=== PATIENT | male | born 1950 | race Caucasian/White ===

== ENCOUNTER → 2018-01-12 | Outpatient (CLI) | payer MEDICARE ==
[2018-01-12 10:10] LABS: Basophils % (A) 0 %; Eosinophils # (A) 0.1 k/uL (0-0.7); Eosinophils % (A) 1 %; HCT 43.7 % (39.0-53.0); HGB 14.7 gm/dL (13.0-17.5); Lymphocytes # (A) 1.1 k/uL (1.0-4.8); Lymphocytes % (A) 15 %; MCH 30.3 pg (25.0-35.0); MCHC 33.6 g/dL (31.0-37.0); MCV 90.2 fL (80.0-100.0); Mean Platelet Volume 6.8; Monocytes # (A) 0.5 k/uL (0-1.0); Monocytes % (A) 8 %; Neutrophils # (A) 5.3 k/uL (1.3-7.7); Neutrophils % (A) 74 %; Platelet Count 106 k/uL (150-450); RBC 4.85 m/uL (4.30-5.90); RDW 14.6 % (11.5-15.5); WBC 7.1 k/uL (3.8-10.6)
== END | disposition home or self-care (01) ==
LOC: LABWHC1 09:36
PROVIDERS: ATTEND Family Medicine
DX: Z01.818 Encounter for other preprocedural examination (principal)
CPT/HCPCS: 36415; 85025

== ENCOUNTER 2018-06-15 02:08 | Observation (INO) | payer MEDICARE ==
[2018-06-15] MEDS ORDERED: HYDROcodone/APAP 5-325MG 1 EACH TAB ONE (03:45)
[2018-06-15] MEDS ORDERED: SODIUM CHLORIDE 0.9% 1,000 ML BAG ONE (03:45)
[2018-06-15] MEDS ORDERED: SODIUM CHLORIDE 0.9% 1,000 ML IV ONE (04:39)
[2018-06-15 05:21] LABS: Creatine Kinase 49 U/L (55-170); Creatine Kinase MB 0.9 ng/mL (0.0-2.4); Troponin I <0.012 ng/mL (0.000-0.034)
[2018-06-15 05:23] LABS: ALT 24 U/L (21-72); AST 18 U/L (17-59); Albumin 3.5 g/dL (3.5-5.0); Alkaline Phosphatase 61 U/L (38-126); Anion Gap 4 mmol/L; Blood Urea Nitrogen 13 mg/dL (9-20); Calcium 8.6 mg/dL (8.4-10.2); Carbon Dioxide 27 mmol/L (22-30); Chloride 104 mmol/L (98-107); Glucose 121 mg/dL (74-99); Magnesium 1.9 mg/dL (1.6-2.3); Potassium 4.3 mmol/L (3.5-5.1); Sodium 135 mmol/L (137-145); Total Bilirubin 0.5 mg/dL (0.2-1.3); Total Protein 5.7 g/dL (6.3-8.2)
[2018-06-15 05:31] LABS: Basophils % (A) 0 %; Eosinophils # (A) 0.1 k/uL (0-0.7); Eosinophils % (A) 1 %; HCT 34.9 % (39.0-53.0); HGB 12.2 gm/dL (13.0-17.5); Lymphocytes # (A) 0.5 k/uL (1.0-4.8); Lymphocytes % (A) 5 %; MCHC 34.9 g/dL (31.0-37.0); MCV 88.7 fL (80.0-100.0); Mean Platelet Volume 7.3; Monocytes # (A) 0.5 k/uL (0-1.0); Monocytes % (A) 5 %; Neutrophils # (A) 8.5 k/uL (1.3-7.7); Neutrophils % (A) 89 %; Platelet Count 131 k/uL (150-450); RBC 3.93 m/uL (4.30-5.90); WBC 9.6 k/uL (3.8-10.6)
[2018-06-15] MEDS ORDERED: GABAPENTIN 300 MG CAP PO STA (06:17)
[2018-06-15 09:12] LABS: Glucose,Whole Blood 117 mg/dL (75-99)
--- NOTE | 2018-06-15 09:54 | XR ---
EXAM: XR Chest, 2 Views CLINICAL HISTORY: fall, chest pain TECHNIQUE: Frontal and lateral views of the chest. COMPARISON: No relevant prior studies available. FINDINGS: Lung volumes. Heart size appears normal allowing for technique. No pneumothorax, evidence for edema or other acute cardiopulmonary process. IMPRESSION: No acute cardiopulmonary findings.
--- NOTE | 2018-06-15 15:46 | P.HPIM ---
History of Present Illness This is a pleasant 68 years old male with past medical history of GERD, osteoarthritis, chronic low back pain, migraine, thrombocytopenia arthritis of multiple joints, restless leg syndrome, prostate cancer status post surgery, status post back surgery and hernia repair who presents because he syncopized twice for the first time while he was playing pool ball, the the patient thinks it's state on the floor for a minute. He hasn't been told he has jerking movements, no urine or bowel incontinence and did not bit his tongue. However patient complaining of from twitching in his upper extremity and restless leg for about one year. Patient states he woke up with no confusion at this point. He denies any chest pain or dyspnea or palpitation. No dizziness. He didn't report any prodromal symptoms. He has history of alcohol abuse however he hasn' t been drinking for the last 3 months Also complaining of from pain and swelling in his left knee after fall, he has history of left knee surgery but patient states is more swollen now, his movement in the left lower extremity is restricted mostly due to pain as per patient On admission patient was afebrile, vitals looks stable. Sodium 135, potassium 4.3. Creatinine 0.4. LFTs were unremarkable. WBC 9.6 a, hemoglobin 12.2. Platelets low at 131 Review of Systems CONSTITUTIONAL: No fever, no malaise, no fatigue. HEENT: No recent visual problems or hearing problems. Denied any sore throat. CARDIOVASCULAR: No orthopnea, PND, no palpitations, no syncope. PULMONARY: No shortness of breath, no cough, no hemoptysis. GASTROINTESTINAL: No diarrhea, no nausea, no vomiting, no abdominal pain. Normoactive bowel sounds. NEUROLOGICAL: No headaches, no weakness, no numbness. HEMATOLOGICAL: Denies any bleeding or petechiae. GENITOURINARY: Denies any burning micturition, frequency, or urgency. MUSCULOSKELETAL/RHEUMATOLOGICAL: Denies any joint pain, swelling, or any muscle pain. ENDOCRINE: Denies any polyuria or polydipsia. Past Medical History Past Medical History: Cancer, GERD/Reflux, Osteoarthritis (OA) Additional Past Medical History / Comment(s): Chronic low back pain, migraines when younger, arthritis multiple joints, recent L knee injury, RLS, prostate cancer with surgery, past R lower leg and rib fractures, past irregular bowels ( diarrhea/constipation) but no longer a problem. History of Any Multi-Drug Resistant Organisms: None Reported Past Surgical History: Back Surgery, Hernia Repair, Orthopedic Surgery, Prostate Surgery Additional Past Surgical History / Comment(s): Recent R wrist surgery, left knee open surgery for meniscus years ago, R inguinal hernia repair, vasectomy with reversal, bilateral hands and thumb surgery d/t injuries, back surgeries (6 ) with fusions, colonoscopy. Past Anesthesia/Blood Transfusion Reactions: Postoperative Nausea & Vomiting ( PONV) Smoking Status: Former smoker - Past Family History Father Family Medical History: No Reported History Additional Family Medical History / Comment(s): Father is healthy and is almost 90yrs old. Mother Family Medical History: No Reported History Additional Family Medical History / Comment(s): Mother is healthy and is 89yrs old. Medications and Allergies Home Medications Medication Instructions Recorded Confirmed Type Acyclovir [Zovirax] 800 mg PO HS 09/27/17 06/15/18 History Gabapentin 600 mg PO TID 09/27/17 06/15/18 History Pramipexole [Mirapex] 1 mg PO BID 09/27/17 06/15/18 History HYDROcodone/APAP 7.5-325MG [[place] 1 tab PO HS 06/15/18 06/15/18 History 7.5-325] Omeprazole 20 mg PO BID 06/15/18 06/15/18 History Allergies Allergy/AdvReac Type Severity Reaction Status Date / Time bee venom protein (honey bee) Allergy Swelling Verified 06/15/18 07:41 Physical Exam Vitals: Vital Signs Temp Pulse Pulse Resp BP BP Pulse Ox 06/15/18 12:40 98.3 F 69 16 149/76 99 06/15/18 12:37 97.9 F 67 18 163/74 97 06/15/18 08:59 74 18 143/72 97 06/15/18 05:18 98.1 F 76 16 137/73 95 Intake and Output 06/15/18 06/15/18 06/15/18 06:59 14:59 22:59 Other: Voiding Method Toilet Weight 77.111 kg 74.5 kg GENERAL: The patient is alert and oriented x3, not in any acute distress. Well developed, well nourished. HEENT: Pupils are round and equally reacting to light. EOMI. No scleral icterus. No conjunctival pallor. Normocephalic, atraumatic. No pharyngeal erythema. No thyromegaly. CARDIOVASCULAR: S1 and S2 present. No murmurs, rubs, or gallops. PULMONARY: Chest is clear to auscultation, no wheezing or crackles. ABDOMEN: Soft, nontender, nondistended, normoactive bowel sounds. No palpable organomegaly. MUSCULOSKELETAL: No joint swelling or deformity. EXTREMITIES: No cyanosis, clubbing, or pedal edema. NEUROLOGICAL: Gross neurological examination did not reveal any focal deficits. SKIN: No rashes. Results CBC & Chem 7: 06/15/18 02:35 06/15/18 02:35 Labs: Abnormal Lab Results - Last 24 Hours (Table) 06/15/18 06/15/18 06/15/18 Range/Units 02:16 02:35 02:35 RBC 3.93 L (4.30-5.90) m/uL Hgb 12.2 L (13.0-17.5) gm/dL Hct 34.9 L (39.0-53.0) % Plt Count 131 L (150-450) k/uL Neutrophils # 8.5 H (1.3-7.7) k/uL Lymphocytes # 0.5 L (1.0-4.8) k/uL Sodium 135 L (137-145) mmol/L Glucose 121 H (74-99) mg/dL POC Glucose (mg/dL) 117 H (75-99) mg/dL Total Creatine Kinase (55-170) U/L Total Protein 5.7 L (6.3-8.2) g/dL 06/15/18 Range/Units 02:35 RBC (4.30-5.90) m/uL Hgb (13.0-17.5) gm/dL Hct (39.0-53.0) % Plt Count (150-450) k/uL Neutrophils # (1.3-7.7) k/uL Lymphocytes # (1.0-4.8) k/uL Sodium (137-145) mmol/L Glucose (74-99) mg/dL POC Glucose (mg/dL) (75-99) mg/dL Total Creatine Kinase 49 L (55-170) U/L Total Protein (6.3-8.2) g/dL Thrombosis Risk Factor Assmnt - Choose All That Apply Any of the Below Risk Factors Present?: Yes Other Risk Factors: Yes Each Risk Factor Represents 2 Points: Age 61-74 years, Malignancy Other congenital or acquired thrombophilia - If yes, enter type in comment: No Thrombosis Risk Factor Assessment Total Risk Factor Score: 4 Thrombosis Risk Factor Assessment Level: Moderate Risk Assessment and Plan Assessment: Syncope Left knee swelling after a fall GERD osteoarthritis chronic low back pain migraine chronic thrombocytopenia arthritis of multiple joints restless leg syndrome prostate cancer status post surgery status post back surgery and hernia repair Plan: Patient presents with syncope and fall, he has left knee swelling, continue with the same and treatment. Continue with symptomatically treatment. We'll do echocardiogram and ask for cardiology consult and neurology consult. X-ray of the left knee: Pending, orthopedic consult: Pending. GI and DVT prophylaxis. Pain management. Further recommendation based on the course of the patient DVT prophylaxis: SCDs, total further workup of the knee and others GI prophylaxis Pepcid PT/OT: Pending
--- NOTE | 2018-06-15 16:23 | XR ---
EXAMINATION TYPE: XR knee 4V LT DATE OF EXAM: 06/15/2018 CLINICAL HISTORY: Left anterior knee pain with swelling and limited range of motion after fall injury yesterday. TECHNIQUE: Three views of the left knee are obtained. A fourth sunrise view was acquired. COMPARISON: None. FINDINGS: There is no acute fracture/dislocation evident in the left knee. There is tricompartment j oint space loss and spurring most prominent medial tibiofemoral compartment where there is moderate t o advanced in appearance. Meniscal calcification is noted suggesting underlying chondrocalcinosis. T here is slight lateral tilting of patella on sunrise view. Suspect small to moderate-sized suprapatel lar joint effusion on lateral view. Some faint densities or calcifications posterior distal femoral a nd superior suprapatellar levels are noted. IMPRESSION: There is no acute fracture or dislocation in the left knee.
[2018-06-15] MEDS: traMADol 50 MG TAB PO PRN ×2 (16:29→23:04)
--- NOTE | 2018-06-15 16:59 | P.CNOR ---
History of Present Illness - [facility] Consult date: 06/15/18 Consult reason: joint pain History of present illness: Patient is a 68 year old male who presented to [facility] today after a syncopal episode. Patient states that he was at a local bar in the area playing pool, he fell off the stool. He does not remember what led up to it, he remembered waking up on the ground. He noticed worsening pain and swelling of his left knee. He was brought to [facility] for further evaluation. Patient was admitted under internal medicine with multiple consults placed for the syncopal episode. Our orthopedic team was counseled with regards to left knee pain and swelling. Patient has a history of a previous left knee surgery done back in the late 70s. He's had on-and-off discomfort over the years with regards to the knee. He has a history of a right hand procedure done by [facility] last year. He has history of multiple back surgeries. He denies any recent orthopedic surgery. Review of Systems Constitutional: Reports as per HPI Past Medical History Past Medical History: Cancer, GERD/Reflux, Osteoarthritis (OA) Additional Past Medical History / Comment(s): Chronic low back pain, migraines when younger, arthritis multiple joints, recent L knee injury, RLS, prostate cancer with surgery, past R lower leg and rib fractures, past irregular bowels ( diarrhea/constipation) but no longer a problem. History of Any Multi-Drug Resistant Organisms: None Reported Past Surgical History: Back Surgery, Hernia Repair, Orthopedic Surgery, Prostate Surgery Additional Past Surgical History / Comment(s): Recent R wrist surgery, left knee open surgery for meniscus years ago, R inguinal hernia repair, vasectomy with reversal, bilateral hands and thumb surgery d/t injuries, back surgeries (6 ) with fusions, colonoscopy. Past Anesthesia/Blood Transfusion Reactions: Postoperative Nausea & Vomiting ( PONV) Smoking Status: Former smoker - Past Family History Father Family Medical History: No Reported History Additional Family Medical History / Comment(s): Father is healthy and is almost 90yrs old. Mother Family Medical History: No Reported History Additional Family Medical History / Comment(s): Mother is healthy and is 89yrs old. Medications and Allergies Home Medications Medication Instructions Recorded Confirmed Type Acyclovir [Zovirax] 800 mg PO HS 09/27/17 06/15/18 History Gabapentin 600 mg PO TID 09/27/17 06/15/18 History Pramipexole [Mirapex] 1 mg PO BID 09/27/17 06/15/18 History HYDROcodone/APAP 7.5-325MG [[place] 1 tab PO HS 06/15/18 06/15/18 History 7.5-325] Omeprazole 20 mg PO BID 06/15/18 06/15/18 History Allergies Allergy/AdvReac Type Severity Reaction Status Date / Time bee venom protein (honey bee) Allergy Swelling Verified 06/15/18 07:41 Physical Examination Left lower extremity: Obvious effusion present over knee, no erythema or open lesions Range of motion is -15 to 100 degrees Minimal medial and lateral joint line tenderness with palpation Calf is soft, no tenderness with palpation Plantar flexion, dorsiflexion, EHL, FHL are intact Sensory exam to lite touch intact, cap refill is less then 2 seconds Log roll maneuver reproduces no pain Results - Labs Labs: Abnormal Lab Results - Last 24 Hours (Table) 06/15/18 06/15/18 06/15/18 Range/Units 02:16 02:35 02:35 RBC 3.93 L (4.30-5.90) m/uL Hgb 12.2 L (13.0-17.5) gm/dL Hct 34.9 L (39.0-53.0) % Plt Count 131 L (150-450) k/uL Neutrophils # 8.5 H (1.3-7.7) k/uL Lymphocytes # 0.5 L (1.0-4.8) k/uL Sodium 135 L (137-145) mmol/L Glucose 121 H (74-99) mg/dL POC Glucose (mg/dL) 117 H (75-99) mg/dL Total Creatine Kinase (55-170) U/L Total Protein 5.7 L (6.3-8.2) g/dL 06/15/18 Range/Units 02:35 RBC (4.30-5.90) m/uL Hgb (13.0-17.5) gm/dL Hct (39.0-53.0) % Plt Count (150-450) k/uL Neutrophils # (1.3-7.7) k/uL Lymphocytes # (1.0-4.8) k/uL Sodium (137-145) mmol/L Glucose (74-99) mg/dL POC Glucose (mg/dL) (75-99) mg/dL Total Creatine Kinase 49 L (55-170) U/L Total Protein (6.3-8.2) g/dL H & H 06/15/18 Range/Units 02:35 Hgb 12.2 L (13.0-17.5) gm/dL Hct 34.9 L (39.0-53.0) % Result Diagrams: 06/15/18 02:35 06/15/18 02:35 - Diagnostic results Knee x-ray: report reviewed, image reviewed Assessment and Plan Plan: Imaging: Multiple views of left knee obtained, no fractures or dislocations. Severe tricompartmental osteoarthritis noteded Assessment: 1. Left knee effusion 2. Left knee tricompartmental osteoarthritis 3. Syncopal episode 4. Other medical cormobidities Plan: I was able to discuss case including physical exam findings with my attending Dr. Salas. No acute surgical intervention needed at this time. I discussed joint aspiration with intraarticular steroid injection to help with symptoms, he would like to proceed, plan to do morning on 06/16/2018 Ice and elevation of left knee Pain control Weightbear as tolerated Other medical speciality recommendations Further recommendations to follow Time with Patient: Less than 30
--- NOTE | 2018-06-15 18:42 | P.CNNES ---
History of Present Illness Consult date: 06/15/18 Reason for Consult: Patient with syncope and muscle twichings. History of Present Illness: This patient is a 68-year-old right-handed white male who states he was in his usual state of health until yesterday evening. He was playing pool with some friends and apparently decided to go to the bar and was sitting at the bar stool when he suddenly felt very warm and diaphoretic. He then apparently passed out and was on the ground. He was noted to have some twitching while he was on the floor but came around very quickly. He had no urinary or bladder incontinence. He did not bite his tongue. He came around quickly and the state auditor who was near him helped him to sit up again. Apparently had 2 similar episodes back to back and at this time the state auditor decided to call EMS. He has a history of restless leg syndrome but has also been noticing for the past year or jerking motions of his arms and legs spontaneously. He has no previous history of seizures or head injury in the past. He has a history of alcohol use in the past but has not been drinking for the past 3 months. He states he is also been very careful and staying hydrated in the warm weather. Patient was brought into the emergency room at [facility] and was seen in the ER by Dr. Henderson. He apparently didn't injure his left knee from falling and had some swelling of the left knee. He is being evaluated by orthopedic surgery for possible left knee effusion. Currently he is to have a procedure done to aspirate the left knee tomorrow morning. Patient does also have a history of 6 back surgeries over the last several years. He has been walking in the knee pain has been only recently after the fall. Once again the patient has no previous history of syncope and/or seizures in the past. He has been doing much better since admission to the hospital. We have recommended the patient undergo routine EEG tomorrow for further evaluation. It was also explained the [place] driving law which states he should not drive for period of 6 months following any syncopal episode and/or seizure. It is still unclear whether he was diaphoretic and possiblyhad a vasovagal syncope as he was pale just prior to this event. This was noted by the state auditor who had seen him before he had passed out. He may benefit from cardiology consultation as well. Patient is now admitted and neurology has been consulted for further evaluation and recommendations. Review of Systems Constitutional: Denies chills, Denies fever Eyes: denies blurred vision, denies pain Ears, nose, mouth and throat: Denies headache, Denies sore throat Cardiovascular: Denies chest pain, Denies shortness of breath Respiratory: Denies cough Gastrointestinal: Denies abdominal pain, Denies diarrhea, Denies nausea, Denies vomiting Musculoskeletal: Denies myalgias Integumentary: Denies pruritus, Denies rash Neurological: Reports syncope, Denies numbness, Denies weakness Psychiatric: Denies anxiety, Denies depression Endocrine: Denies fatigue, Denies weight change Past Medical History Past Medical History: Cancer, GERD/Reflux, Osteoarthritis (OA) Additional Past Medical History / Comment(s): Chronic low back pain, migraines when younger, arthritis multiple joints, recent L knee injury, RLS, prostate cancer with surgery, past R lower leg and rib fractures, past irregular bowels ( diarrhea/constipation) but no longer a problem. History of Any Multi-Drug Resistant Organisms: None Reported Past Surgical History: Back Surgery, Hernia Repair, Orthopedic Surgery, Prostate Surgery Additional Past Surgical History / Comment(s): Recent R wrist surgery, left knee open surgery for meniscus years ago, R inguinal hernia repair, vasectomy with reversal, bilateral hands and thumb surgery d/t injuries, back surgeries (6 ) with fusions, colonoscopy. Past Anesthesia/Blood Transfusion Reactions: Postoperative Nausea & Vomiting ( PONV) Smoking Status: Former smoker - Past Family History Father Family Medical History: No Reported History Additional Family Medical History / Comment(s): Father is healthy and is almost 90yrs old. Mother Family Medical History: No Reported History Additional Family Medical History / Comment(s): Mother is healthy and is 89yrs old. Medications and Allergies Home Medications Medication Instructions Recorded Confirmed Type Acyclovir [Zovirax] 800 mg PO HS 09/27/17 06/15/18 History Gabapentin 600 mg PO TID 09/27/17 06/15/18 History Pramipexole [Mirapex] 1 mg PO BID 09/27/17 06/15/18 History HYDROcodone/APAP 7.5-325MG [[place] 1 tab PO HS 06/15/18 06/15/18 History 7.5-325] Omeprazole 20 mg PO BID 06/15/18 06/15/18 History Allergies Allergy/AdvReac Type Severity Reaction Status Date / Time bee venom protein (honey bee) Allergy Swelling Verified 06/15/18 07:41 Physical Examination - Vital Signs Vital Signs: Vital Signs Temp Pulse Pulse Resp BP BP BP 06/15/18 15:50 99.3 F 65 18 159/85 06/15/18 12:40 98.3 F 69 16 149/76 06/15/18 12:37 97.9 F 67 18 163/74 06/15/18 08:59 74 18 143/72 06/15/18 05:18 98.1 F 76 16 137/73 BP BP Pulse Ox 06/15/18 15:50 175/87 150/69 100 06/15/18 12:40 99 06/15/18 12:37 97 06/15/18 08:59 97 06/15/18 05:18 95 Intake and Output 06/15/18 06/15/18 06/15/18 06:59 14:59 22:59 Other: Voiding Method Toilet Weight 77.111 kg 74.5 kg - Constitutional General appearance: average body habitus, cooperative - EENT EENT: PERRL, mucous membranes moist - Respiratory Respiratory: lungs clear, normal breath sounds - Cardiovascular Cardiovascular: regular rate, normal S1, normal S2 Extremities: no peripheral edema bilaterally - Gastrointestinal Gastrointestinal: normoactive bowel sounds - Integumentary Integumentary: normal - Neurologic Cranial nerve examination: PERRL, EOMI, VFF, V1/V2/V3 grossly intact, face symmetric, intact gag reflex, intact corneal reflex, normal palatal elevation Speech examination: intact Sensorimotor examination: intact Motor examination - right side: 4/5: biceps, triceps, wrist flexion, wrist extension, bulb sorter, hip flexors, knee extensors, dorsiflexion, toe extension (EHL) , plantarflexion Motor examination - left side: 4/5: biceps, triceps, wrist flexion, wrist extension, bulb sorter, hip flexors, knee extensors, dorsiflexion, toe extension (EHL) , plantarflexion Detailed sensory examination: intact Reflex and gait examination: intact Reflexes: 1+: ankle, bicep, knee, tricep - Musculoskeletal Musculoskeletal: fluid collection (Left knee effusion.), pain in joint - Psychiatric Psychiatric: mood/affect appropriate, cooperative Results - Laboratory Findings CBC and BMP: 06/15/18 02:35 06/15/18 02:35 Abnormal Lab Findings: Abnormal Labs 06/15/18 06/15/18 06/15/18 02:16 02:35 02:35 RBC 3.93 L Hgb 12.2 L Hct 34.9 L Plt Count 131 L Neutrophils # 8.5 H Lymphocytes # 0.5 L Sodium 135 L Glucose 121 H POC Glucose (mg/dL) 117 H Total Creatine Kinase Total Protein 5.7 L 06/15/18 02:35 RBC Hgb Hct Plt Count Neutrophils # Lymphocytes # Sodium Glucose POC Glucose (mg/dL) Total Creatine Kinase 49 L Total Protein Assessment and Plan (1) Vasovagal syncope Current Visit: Yes Status: Acute Code(s): R55 - SYNCOPE AND COLLAPSE SNOMED Code(s): 013651358 (2) Effusion, left knee Current Visit: Yes Status: Acute Code(s): M25.462 - EFFUSION, LEFT KNEE SNOMED Code(s): 852789820 (3) Chronic low back pain Current Visit: Yes Status: Acute Code(s): M54.5 - LOW BACK PAIN; G89.29 - OTHER CHRONIC PAIN SNOMED Code(s): 793602026 (4) Restless leg syndrome Current Visit: Yes Status: Acute Code(s): G25.81 - RESTLESS LEGS SYNDROME SNOMED Code(s): 77807921 Plan: This patient is a 68-year-old male who had an acute syncopal episode yesterday while he was playing pool. Apparently he was sitting at the bar stool and apparently became suddenly pale and clammy. He then collapsed to the floor. The state auditor had seen this event. He did not have any seizure-like activity on the floor and did not have any bowel or bladder incontinence. He did not bite his tongue. He came around fairly quickly and did not appear to be confused. Clinical history suggesting vasovagal syncope. He was brought into the emergency room and subsequent admitted hospital. He has no previous history of seizures and/or head injury in the past. We have recommended the patient undergo routine EEG to rule out any possibility of seizure disorder. He was evaluated by orthopedic surgery for left knee effusion. He is to undergo aspiration of this fluid tomorrow by orthopedic surgery. Patient otherwise seems to be doing very well. We will review his EEG and give further recommendations. He was once again reminded of the [place] driving law states he should not drive.. To 6 months following any syncopal episode and/or seizure. We will continue close neurological follow-up for the patient during this admission. His overall prognosis at this time remains guarded. Time with Patient: Greater than 30
[2018-06-15] MEDS: HYDROcodone/APAP 7.5-325MG 1 EACH TAB PO SCH (21:50)
[2018-06-16] MEDS: traMADol 50 MG TAB PO PRN (03:34)
[2018-06-16 06:53] LABS: Basophils % (A) 0 %; Eosinophils # (A) 0.1 k/uL (0-0.7); Eosinophils % (A) 1 %; HCT 36.3 % (39.0-53.0); HGB 12.2 gm/dL (13.0-17.5); Lymphocytes # (A) 0.8 k/uL (1.0-4.8); Lymphocytes % (A) 12 %; MCH 29.4 pg (25.0-35.0); MCHC 33.6 g/dL (31.0-37.0); MCV 87.6 fL (80.0-100.0); Monocytes # (A) 0.4 k/uL (0-1.0); Monocytes % (A) 5 %; Neutrophils # (A) 5.7 k/uL (1.3-7.7); Neutrophils % (A) 81 %; Platelet Count 125 k/uL (150-450); RBC 4.15 m/uL (4.30-5.90); RDW 13.7 % (11.5-15.5)
[2018-06-16 07:01] LABS: Anion Gap 7 mmol/L; Blood Urea Nitrogen 9 mg/dL (9-20); Calcium 8.5 mg/dL (8.4-10.2); Carbon Dioxide 27 mmol/L (22-30); Chloride 105 mmol/L (98-107); Glucose 109 mg/dL (74-99); Prothrombin Time 10.1 sec (9.0-12.0); Sodium 139 mmol/L (137-145)
--- NOTE | 2018-06-16 10:34 | CONS ---
CONSULTATION Mr. Whitaker is a 68-year-old male patient who was playing pool and then he walked to the bar, sat down on the barstool and after a minute or 2, he became dizzy and he passed out and fell to the floor. In the process, he injured his knee. He had a meniscus injury in the past and had has had surgery and now has knee swelling with synovial fluid, which is being managed by Orthopedics. He denied any palpitations or chest pain just prior to that. He denied any chest discomfort. He was just dizzy and passed out briefly, had some muscle twitching. He fell and apparently he was shah. When he opened his eyes, he was alert and oriented and wondered why he was on the floor, but he knew exactly where he was. There was no postictal phase. He was warm. He was sweaty. He was hot. This is the first time he has had such an episode. He has not actually had a syncopal spell before. PAST HISTORY: No history of diabetes, hypertension, dyslipidemia and no family history of any premature coronary artery disease. Allergies to BEE VENOM PROTEIN. Past medical history also includes multiple back surgeries and he is unable to exercise on the treadmill. His medications include Mirapex. omeprazole, gabapentin, and acyclovir. He has had a low platelet count for an unclear reason. REVIEW OF SYSTEMS: No fever, chills, or rigors. No cough or expectoration. No nausea, vomiting, or diarrhea. No hematuria or dysuria. No strokes or seizures or skin lesions. No musculoskeletal complaints. He was not dehydrated. He had his meals. He had 2 meals that day. He had been drinking enough water nor had he been drinking the night before. A first 12 lead ECG shows sinus mechanism with normal cardiac intervals. A second ECG shows sinus mechanism with normal NM, narrow QRS and very subtle ST-segment abnormality in the lateral precordial leads. His labs are reviewed. Hemoglobin is 12.2. His platelet count is already low. Electrolytes are normal. Three sets of cardiac enzymes are normal. No arrhythmias noted. IMPRESSION: First episode of syncope that is consistent with neurocardiogenic syncope. However, he was sitting at that time for a few minutes. He was playing pool, had been standing any wall to the [employer] and was sitting moments before he actually passed out. In the process, he injured his right knee. This is his first episode. There are very subtle ST-segment abnormalities in the followup ECG, but his cardiac enzymes are normal. SUGGEST: 1. A 2D echo and Doppler study. 2. Tilt table test today and further workup as an outpatient. I did discuss that if he had a repeat spell than implantation of a loop monitor to look for a cardiac contributory cause of vasovagal syncope should be cardioverted to look for cardiac inhibitory pattern may be considered given the scenario when it happened. [id number] / IJN: [id number] /
--- NOTE | 2018-06-16 10:58 | P.PN ---
Subjective Progress Note Date: 06/16/18 Principal diagnosis: Left knee effusion, left knee osteoarthritis Patient seen today resting in his hospital bed. His knee continues to bother him. He would like to proceed with a aspiration and cortisone injection of the knee. Objective - Vital Signs Vital signs: Vital Signs Temp 98.6 F 06/16/18 07:03 Pulse 61 06/16/18 07:03 Resp 16 06/16/18 07:03 BP 139/70 06/16/18 07:03 Pulse Ox 97 06/16/18 07:03 Intake & Output 06/15/18 06/16/18 06/16/18 18:59 06:59 18:59 Intake Total 200 2400 Balance 200 2400 Weight 74.5 kg Intake: Intake, IV Titration 1200 Amount Sodium Chloride 0.9% 1, 1200 000 ml @ 100 mls/hr IV . Q10H ONE Rx#:[id number] Oral 200 1200 Other: Voiding Method Toilet Toilet Toilet # Voids 700 - Exam Left lower extremity: Obvious effusion present over the knee, very difficult time lifting the leg off the bed. After aspiration, notable soft tissue swelling proximal to patella, patient still has a very difficult time extending and lifting the leg off the bed. Concern for possible quad injury. - Labs CBC & Chem 7: 06/16/18 06:29 06/16/18 06:29 Labs: Abnormal Lab Results - Last 24 Hours (Table) 06/16/18 06/16/18 Range/Units 06:29 06:29 RBC 4.15 L (4.30-5.90) m/uL Hgb 12.2 L (13.0-17.5) gm/dL Hct 36.3 L (39.0-53.0) % Plt Count 125 L (150-450) k/uL Lymphocytes # 0.8 L (1.0-4.8) k/uL Glucose 109 H (74-99) mg/dL Assessment and Plan Plan: Assessment: 1. Left knee effusion 2. Left knee osteoarthritis 3. Possible of quadriceps tendon injury 4. Syncopal episode Plan: Patient would like to proceed with left knee aspiration with cortisone injection , please see procedure note for further detail Patient tolerated the procedure well, recommend weight-bear as tolerated We'll discuss with Dr. Salas possible further imaging studies to evaluate left quadriceps tendon Other biomedical equipment technician recommendations Further recommendations to follow Time with Patient: Less than 30
--- NOTE | 2018-06-16 11:00 | P.PCN ---
Date of Procedure: 06/16/18 Preoperative Diagnosis: Left knee effusion and pain Postoperative Diagnosis: Same Procedure(s) Performed: Left knee aspiration with intra-articular cortisone injection Implants: None Anesthesia: regional Surgeon: Kain Richard Estimated Blood Loss (ml): 0 Pathology: none sent Disposition: no change Indications for Procedure: Left knee effusion and pain Description of Procedure: I discussed the risk and benefits of the procedure the patient, he is in a grandson would like to proceed. Patient was placed in the supine position, the knee was prepped with 1 ChloraPrep swab and one alcohol swabs. 3 mL of 1% plain lidocaine was then used with a 20-gauge needle to anesthetize the region, I then aspirated about 62 mL of normal-appearing serosanguineous fluid. After proper aspiration, I then switched syringes and placed 2 mL 1% plain lidocaine and 40 mg of Depo- Medrol intra-articular. Patient tolerated the procedure well, bandage was placed
[2018-06-16] MEDS ORDERED: SODIUM CHLORIDE 0.9% 500 ML IV ONE (11:08)
--- NOTE | 2018-06-16 11:20 | ECHOF ---
Referral Reason:Rule out heart disease MEASUREMENTS -------- HEIGHT: 180.3 cm WEIGHT: 74.4 kg BP: 154/76 RVIDd: 3.6 cm (< 3.3) IVSd: 1.2 cm (0.6 - 1.1) LVIDd: 4.9 cm (3.9 - 5.3) LVPWd: 1.3 cm (0.6 - 1.1) IVSs: 1.7 cm LVIDs: 3.5 cm LVPWs: 1.7 cm LA Diam: 4.3 cm (2.7 - 3.8) Ao Diam: 3.2 cm (2.0 - 3.7) LAESV Index (A-L): 29.88 ml/m Ao Diam: 3.2 cm (2.0 - 3.7) AV Cusp: 2.2 cm (1.5 - 2.6) LA Diam: 4.3 cm (2.7 - 3.8) EPSS: 0.3 cm MV E Luis: 0.73 m/s MV DecT: 293 ms MV A Luis: 0.91 m/s MV E/A Ratio: 0.80 RAP: 5.00 mmHg RVSP: 21.21 mmHg MV EF SLOPE: 106.86 mm/s (70 - 150) MV EXCURSION: 2.16 cm (> 18.000) FINDINGS -------- Sinus rhythm. This was a technically good study. The left ventricular size is normal. There is mild concentric left ventricular hypertrophy. Overa ll left ventricular systolic function is normal with, an EF between 55 - 60 %. The right ventricle is mildly enlarged. LA is midly dilated 29-33ml/m2. RA appears enlarged. Aortic valve is trileaflet and is mildly thickened. There is no evidence of aortic regurgitation. There is no evidence of aortic stenosis. The mitral valve leaflets are mildly thickened. There is trace to mild mitral regurgitation. Trace tricuspid regurgitation present. Right ventricular systolic pressure is normal at < 35 mmHg. There is no evidence of pulmonary hypertension. Trace/mild (physiologic) pulmonic regurgitation. The aortic root size is normal. Normal inferior vena cava with normal inspiratory collapse consistent with estimated right atrial pre ssure of 5 mmHg. There is no pericardial effusion. CONCLUSIONS -------- 1. Sinus rhythm. 2. This was a technically good study. 3. The left ventricular size is normal. 4. There is mild concentric left ventricular hypertrophy. 5. Overall left ventricular systolic function is normal with, an EF between 55 - 60 %. 6. The right ventricle is mildly enlarged. 7. LA is midly dilated 29-33ml/m2. 8. RA appears enlarged. 9. Aortic valve is trileaflet and is mildly thickened. 10. The mitral valve leaflets are mildly thickened. 11. There is trace to mild mitral regurgitation. 12. Trace tricuspid regurgitation present. 13. Right ventricular systolic pressure is normal at < 35 mmHg. 14. There is no evidence of pulmonary hypertension. 15. Trace/mild (physiologic) pulmonic regurgitation. 16. The aortic root size is normal. 17. There is no pericardial effusion. FINISHING MANAGER: Henri Montero RDCS
[2018-06-16] MEDS ORDERED: HYDROcodone/APAP 7.5-325MG 1 EACH TAB PO PRN (14:00)
[2018-06-16] MEDS: GABAPENTIN 300 MG CAP PO SCH ×2 (17:03→19:38)
--- NOTE | 2018-06-16 18:36 | P.PCN ---
Preoperative Diagnosis: Tilt table test procedure Twelve-lead ECG Patient is to shows normal sinus rhythm and normal cardiac intervals normal ST segments no delta waves waves Indication patient has a history of syncope associated with trauma, consistent with neurocardiogenic syncope. no bradycardia on telemetry so far Tilt table test patient underwent tilt table test per protocol. baseline blood pressure 144/77 mmhg baseline heart rate 50 beats a minute patient was tilted upright at an angle of 70 per protocol he felt warm and clammy during the procedure he felt flushed at times there was no change in heart rate or blood pressure Impression Normal heart rate and blood pressure response to upright tilting Ghada If he has recurrent episodes of syncope then implantation of loop monitor may be considered to look for cardioinhibitory forms of neurocardiogenic syncope given the situation and the scenario of this episode of syncope
--- NOTE | 2018-06-16 19:08 | P.PN ---
Subjective Progress Note Date: 06/16/18 This patient is a 68-year-old lady white male who was seen yesterday in neurology consultation for possibility of vasovagal syncope versus seizure disorder. Patient was at a facility and was playing pool and decided to take a break and was sitting at the bar stool. He apparently passed out and was witnessed by the reserves clerk was clear. He was brought into the emergency room yesterday for further evaluation. He underwent an initial computed tomography scan of the brain which was negative. His neurological examination yesterday was nonfocal. He did have symptoms suggesting increase sweating and diaphoresis just prior to this event. He did not have any seizure-like events when he had passed out. He is being evaluated by cardiology for neurocardiogenic syncope. He is scheduled to have a tilt table test later today. We have ordered EEG as well for further evaluation to rule out seizure disorder. Patient was seen by cardiology today and underwent a tilt table test. Preliminary report indicates normal tilt table testing with a normal heart rate and blood pressure response to upright tilting. We also were able to review this patient's EEG which was completed today. His EEG is normal for his age with no evidence of any epileptiform discharges. The patient was seen by orthopedic surgery today and aspiration of his left knee was completed. Apparently there is concern for some ligamentous tear in the left knee and he is to have an MRI of the left knee done tonight. Neurological exam at this time is nonfocal. Patient is being considered for possible discharge home [place]. We reviewed the results of his EEG and other testing with him today in detail. We will continue close neurological follow-up for him during this admission. Objective - Vital Signs Vital signs: Vital Signs Temp 98.6 F 06/16/18 07:03 Pulse 61 06/16/18 07:03 Resp 16 06/16/18 07:03 BP 139/70 06/16/18 07:03 Pulse Ox 97 06/16/18 07:03 Intake & Output 06/15/18 06/16/18 06/16/18 18:59 06:59 18:59 Intake Total 200 2400 286 Balance 200 2400 286 Weight 74.5 kg Intake: IV 50 Intake, IV Titration 1200 Amount Sodium Chloride 0.9% 1, 1200 000 ml @ 100 mls/hr IV . Q10H ONE Rx#:[id number] Oral 200 1200 236 Other: Voiding Method Toilet Toilet Toilet # Voids 700 3 - Exam Physical examination: PHYSICAL EXAMINATION: Patient is resting comfortably in bed. VITAL SIGNS: Blood pressure is [139/70]. Heart rate is [61]. Respiration is [16] . Temperature is [98.0]. HEENT: Head is atraumatic, neck is supple, there were no carotid bruits. CHEST: Lungs are clear to auscultation and percussion. CARDIAC: S1, S2 normal rate and rhythm. There is no murmur. ABDOMEN: Soft and nontender. Bowel sounds are present. EXTREMITIES: There is no pedal edema. Peripheral pulses are present. Neurological examination: Patient has a nonfocal neurological examination today. He has had no further syncopal episodes. - Labs CBC & Chem 7: 06/16/18 06:29 06/16/18 06:29 Labs: Abnormal Lab Results - Last 24 Hours (Table) 06/16/18 06/16/18 Range/Units 06:29 06:29 RBC 4.15 L (4.30-5.90) m/uL Hgb 12.2 L (13.0-17.5) gm/dL Hct 36.3 L (39.0-53.0) % Plt Count 125 L (150-450) k/uL Lymphocytes # 0.8 L (1.0-4.8) k/uL Glucose 109 H (74-99) mg/dL Assessment and Plan (1) Vasovagal syncope Current Visit: Yes Status: Acute Code(s): R55 - SYNCOPE AND COLLAPSE SNOMED Code(s): 158599508 (2) Effusion, left knee Current Visit: Yes Status: Acute Code(s): M25.462 - EFFUSION, LEFT KNEE SNOMED Code(s): 001460575 (3) Chronic low back pain Current Visit: Yes Status: Acute Code(s): M54.5 - LOW BACK PAIN; G89.29 - OTHER CHRONIC PAIN SNOMED Code(s): 672779621 (4) Restless leg syndrome Current Visit: Yes Status: Acute Code(s): G25.81 - RESTLESS LEGS SYNDROME SNOMED Code(s): 44512049 Plan: This patient is a pleasant 68-year-old male who is being evaluated for recent syncopal episode and collapse. Patient was admitted to hospital and neurology was consulted for further evaluation to rule out seizure disorder in this patient. Patient underwent routine EEG today which was reviewed and is normal for his age. He was also seen by cardiology today and underwent a tilt table test which also came back normal. Patient may require loop monitor to be placed to rule out other forms of neurocardiogenic syncope. He is to follow-up with cardiology. His neurological examination today is nonfocal. Patient was updated on the results of his EEG today and should follow-up in the outpatient neurology clinic in 3-4 weeks. So overall prognosis at this time remains fair.
[2018-06-16] MEDS: HYDROcodone/APAP 7.5-325MG 1 EACH TAB PO SCH (19:30)
[2018-06-16] MEDS: PRAMIPEXOLE 1 MG TAB PO SCH (19:38)
[2018-06-16] MEDS: PANTOPRAZOLE 40 MG TABLET PO SCH (19:38)
--- NOTE | 2018-06-16 20:44 | P.PN ---
Subjective This is a pleasant 68 years old male with past medical history of GERD, osteoarthritis, chronic low back pain, migraine, thrombocytopenia arthritis of multiple joints, restless leg syndrome, prostate cancer status post surgery, status post back surgery and hernia repair who presents because he syncopized twice for the first time while he was playing pool ball, the the patient thinks it's state on the floor for a minute. He hasn't been told he has jerking movements, no urine or bowel incontinence and did not bit his tongue. However patient complaining of from twitching in his upper extremity and restless leg for about one year. Patient states he woke up with no confusion at this point. He denies any chest pain or dyspnea or palpitation. No dizziness. He didn't report any prodromal symptoms. He has history of alcohol abuse however he hasn' t been drinking for the last 3 months Also complaining of from pain and swelling in his left knee after fall, he has history of left knee surgery but patient states is more swollen now, his movement in the left lower extremity is restricted mostly due to pain as per patient On admission patient was afebrile, vitals looks stable. Sodium 135, potassium 4.3. Creatinine 0.4. LFTs were unremarkable. WBC 9.6 a, hemoglobin 12.2. Platelets low at 131 06/16/2018 pt is status joint aspiration , pt does not look in distress, pain management, neurology is following the pt , EEG is taken , cardiology work up is still going on , please refer to their note for more details. Objective - Vital Signs Vital signs: Vital Signs Temp 98.7 F 06/16/18 19:00 Pulse 57 L 06/16/18 20:00 Resp 16 06/16/18 20:00 BP 144/75 06/16/18 19:00 Pulse Ox 98 06/16/18 19:00 Intake & Output 06/16/18 06/16/18 06/17/18 06:59 18:59 06:59 Intake Total 2400 286 Output Total 600 Balance 2400 286 -600 Intake: IV 50 Intake, IV Titration 1200 Amount Sodium Chloride 0.9% 1, 1200 000 ml @ 100 mls/hr IV . Q10H ONE Rx#:[id number] Oral 1200 236 Output: Urine 600 Other: Voiding Method Toilet Toilet Toilet Urinal # Voids 700 3 - Exam GENERAL: The patient is alert and oriented x3, not in any acute distress. Well developed, well nourished. HEENT: Pupils are round and equally reacting to light. EOMI. No scleral icterus. No conjunctival pallor. Normocephalic, atraumatic. No pharyngeal erythema. No thyromegaly. CARDIOVASCULAR: S1 and S2 present. No murmurs, rubs, or gallops. PULMONARY: Chest is clear to auscultation, no wheezing or crackles. ABDOMEN: Soft, nontender, nondistended, normoactive bowel sounds. No palpable organomegaly. Small abdominal wall lump close to the umbilicus with a smooth borders and mobile, nontender MUSCULOSKELETAL: No joint swelling or deformity. EXTREMITIES: No cyanosis, clubbing, or pedal edema. NEUROLOGICAL: Gross neurological examination did not reveal any focal deficits. - Labs CBC & Chem 7: 06/16/18 06:29 06/16/18 06:29 Labs: Abnormal Lab Results - Last 24 Hours (Table) 06/16/18 06/16/18 Range/Units 06:29 06:29 RBC 4.15 L (4.30-5.90) m/uL Hgb 12.2 L (13.0-17.5) gm/dL Hct 36.3 L (39.0-53.0) % Plt Count 125 L (150-450) k/uL Lymphocytes # 0.8 L (1.0-4.8) k/uL Glucose 109 H (74-99) mg/dL Assessment and Plan Assessment: Syncope Left knee swelling after a fall GERD osteoarthritis chronic low back pain migraine chronic thrombocytopenia arthritis of multiple joints restless leg syndrome prostate cancer status post surgery status post back surgery and hernia repair Plan: Patient presents with syncope and fall, he has left knee swelling, continue with the same and treatment. Continue with symptomatically treatment. We'll do echocardiogram and ask for cardiology consult and neurology consult. X-ray of the left knee: Pending, orthopedic consultis appreciated, s/p joint asperation , EEG adn Tilte table test are normal, may need further w/u . GI and DVT prophylaxis. Pain management. Further recommendation based on the course of the patient DVT prophylaxis: SCDs, total further workup of the knee and others GI prophylaxis Pepcid PT/OT: Pending
[2018-06-16] MEDS ORDERED: ACYCLOVIR 800 MG TAB PO SCH (21:00)
[2018-06-17] MEDS ORDERED: HYDROcodone/APAP 7.5-325MG 1 EACH TAB ONE (04:20)
[2018-06-17 07:38] LABS: Basophils % (A) 0 %; Eosinophils % (A) 0 %; HCT 39.1 % (39.0-53.0); HGB 13.3 gm/dL (13.0-17.5); Lymphocytes # (A) 0.5 k/uL (1.0-4.8); Lymphocytes % (A) 6 %; MCH 29.8 pg (25.0-35.0); MCHC 34.1 g/dL (31.0-37.0); MCV 87.5 fL (80.0-100.0); Mean Platelet Volume 6.9; Monocytes # (A) 0.5 k/uL (0-1.0); Monocytes % (A) 6 %; Neutrophils # (A) 7.3 k/uL (1.3-7.7); Neutrophils % (A) 87 %; Platelet Count 155 k/uL (150-450); RBC 4.46 m/uL (4.30-5.90); RDW 13.9 % (11.5-15.5); WBC 8.4 k/uL (3.8-10.6)
[2018-06-17 07:56] LABS: Anion Gap 6 mmol/L; Blood Urea Nitrogen 16 mg/dL (9-20); Calcium 9.3 mg/dL (8.4-10.2); Carbon Dioxide 29 mmol/L (22-30); Chloride 102 mmol/L (98-107); Glucose 131 mg/dL (74-99); Potassium 4.9 mmol/L (3.5-5.1); Sodium 137 mmol/L (137-145)
--- NOTE | 2018-06-17 07:59 | P.PN ---
Progress Note - Text Progress Note Date: 06/17/18 S: The patient notes significant improvement in his left knee pain. O: Afebrile, vital signs stable Homans [negative] left lower extremity Mild effusion left knee, no warmth or erythema Range of motion left knee -15 to 110 of flexion Minimal joint line tenderness A/P: Left knee effusion/chondrocalcinosis/osteoarthrosis Medical management Ambulate with physical therapy partial weightbearing as tolerated with walker once medically stable Follow up as outpatient in [address] Salas May hold off on MRI at this point.
[2018-06-17 08:04] VITALS: RESP 18
[2018-06-17] MEDS: PANTOPRAZOLE 40 MG TABLET PO SCH (08:31)
[2018-06-17] MEDS: GABAPENTIN 300 MG CAP PO SCH (08:31)
[2018-06-17] MEDS: PRAMIPEXOLE 1 MG TAB PO SCH (08:31)
[2018-06-17 12:14] VITALS: BP 151/83; PULSE 56; TEMP 98.2
--- NOTE | 2018-06-17 14:50 | P.DS ---
Providers Date of admission: 06/15/18 04:39 Attending physician: Bernabe Valladares Consults: 06/15/18 15:44 Consult Physician Routine Consulting Provider: Enzo Arauz Consult Reason/Comments: Syncope, and twitching Do you want consulting provider notified?: Yes 06/15/18 15:55 Consult Physician Routine Consulting Provider: Surinder Salas Consult Reason/Comments: left knee injury/edema Do you want consulting provider notified?: Yes 06/15/18 15:59 Consult Physician Routine Consulting Provider: Ac Lester Consult Reason/Comments: syncope Do you want consulting provider notified?: Yes Primary care physician: [facility] Course: This is a pleasant 68 years old male with past medical history of GERD, osteoarthritis, chronic low back pain, migraine, thrombocytopenia arthritis of multiple joints, restless leg syndrome, prostate cancer status post surgery, status post back surgery and hernia repair who presents because he syncopized twice for the first time while he was playing pool ball, the the patient thinks he stayed on the floor for a minute. He hasn't been told he has jerking movements, no urine or bowel incontinence and did not bit his tongue. However patient complaining of from twitching in his upper extremity and restless leg for about one year. Patient states he woke up with no confusion at this point. He denies any chest pain or dyspnea or palpitation. No dizziness. He didn't report any prodromal symptoms. He has history of alcohol abuse however he hasn' t been drinking for the last 3 months Also complaining of from pain and swelling in his left knee after fall, he has history of left knee surgery but patient states is more swollen now, his movement in the left lower extremity is restricted mostly due to pain as per patient Patient has been evaluated by neurology and cardiology team for his syncope. EEG and Tilt table test are normal. Patient may require loop monitor to be placed to rule out other forms of neurocardiogenic syncope. If he has recurrent episodes of syncope then implantation of loop monitor may be considered to look for cardioinhibitory forms of neurocardiogenic syncope given the situation and the scenario of this episode of syncope Orthopedic consult consult the patient for left knee effusion. Patient most likely has )Left knee effusion/chondrocalcinosis/osteoarthrosis) patient is status post left knee aspiration of 62 mL of normal appearing serosanguineous fluid. Followed by lidocaine and the Depo-Medrol intra-articular injection by the orthopedic team. Patient was cleared for discharge by neurology, cardiology and orthopedic. Problems and management plan and mobility instructions by using a walker was provided to the patient (see discharge instructions) And he agrees Patient was found stable and can be discharged home however he needs follow-up as an outpatient. Patient agrees with orthopedic appointment. And he states he can make his own appointments with neurology, cardiology and PCP and he doesn 't want to help from medical staff for the GENERAL: The patient is alert and oriented x3, not in any acute distress. Well developed, well nourished. HEENT: Pupils are round and equally reacting to light. EOMI. No scleral icterus. No conjunctival pallor. Normocephalic, atraumatic. No pharyngeal erythema. No thyromegaly. CARDIOVASCULAR: S1 and S2 present. No murmurs, rubs, or gallops. PULMONARY: Chest is clear to auscultation, no wheezing or crackles. ABDOMEN: Soft, nontender, nondistended, normoactive bowel sounds. No palpable organomegaly. MUSCULOSKELETAL: No joint swelling or deformity. EXTREMITIES: No cyanosis, clubbing, or pedal edema. Mild effusion of the left knee with no redness or tenderness or hotness NEUROLOGICAL: Gross neurological examination did not reveal any focal deficits. SKIN: No rashes. Time spent more than 35 minutes Patient Condition at Discharge: Good Plan - Discharge Summary Discharge Rx Participant: No New Discharge Prescriptions: No Action Gabapentin 600 mg PO TID Acyclovir [Zovirax] 800 mg PO HS Pramipexole [Mirapex] 1 mg PO BID Omeprazole 20 mg PO BID HYDROcodone/APAP 7.5-325MG [[place] 7.5-325] 1 tab PO Q6HR PRN PRN Reason: Pain Discharge Medication List Acyclovir [Zovirax] 800 mg PO HS 09/27/17 [History] Gabapentin 600 mg PO TID 09/27/17 [History] Pramipexole [Mirapex] 1 mg PO BID 09/27/17 [History] HYDROcodone/APAP 7.5-325MG [[place] 7.5-325] 1 tab PO Q6HR PRN 06/15/18 [History] Omeprazole 20 mg PO BID 06/15/18 [History] Follow up Appointment(s)/Referral(s): Ac Lester MD [STAFF PHYSICIAN] - 6 Weeks (Office will call to set up an appointment.) Enzo Arauz MD [STAFF PHYSICIAN] - 4 Weeks (Dr. Thomas Office will call to schedule an appointment.) Dennis Dunbar DO [Primary Care Provider] - 1 Week Surinder Salas MD [STAFF PHYSICIAN] - 06/24/18 1:30 pm () Patient Instructions/Handouts: Syncope (DC), Swollen Knee Joint (GEN) Activity/Diet/Wound Care/Special Instructions: Continue with cardiac diet Activity: Ambulate with physical therapy partial weightbearing as tolerated with walker once medically stable
--- NOTE | 2018-06-17 16:14 | P.PN ---
Subjective Progress Note Date: 06/17/18 This patient is a 68-year-old lady white male who was seen yesterday in neurology consultation for possibility of vasovagal syncope versus seizure disorder. Patient was at a facility and was playing pool and decided to take a break and was sitting at the bar stool. He apparently passed out and was witnessed by the supervisor painting department was clear. He was brought into the emergency room yesterday for further evaluation. He underwent an initial computed tomography scan of the brain which was negative. His neurological examination yesterday was nonfocal. He did have symptoms suggesting increase sweating and diaphoresis just prior to this event. He did not have any seizure-like events when he had passed out. He is being evaluated by cardiology for neurocardiogenic syncope. He is scheduled to have a tilt table test later today. We have ordered EEG as well for further evaluation to rule out seizure disorder. Patient was seen by cardiology today and underwent a tilt table test. Preliminary report indicates normal tilt table testing with a normal heart rate and blood pressure response to upright tilting. We also were able to review this patient's EEG which was completed today. His EEG is normal for his age with no evidence of any epileptiform discharges. The patient was seen by orthopedic surgery today and aspiration of his left knee was completed. Apparently there is concern for some ligamentous tear in the left knee and he is to have an MRI of the left knee done tonight. Neurological exam at this time is nonfocal. Patient is being considered for possible discharge home later today. We reviewed the results of his EEG and other testing with him today in detail. Patient apparently will undergo MRI of the left knee as an outpatient. He continues to do very well today and is had no further syncopal episodes. He may follow-up in the outpatient neurology clinic in 3-4 weeks. We will continue close neurological follow-up for him during this admission. Objective - Vital Signs Vital signs: Vital Signs Temp 97.5 F L 06/17/18 07:25 Pulse 49 L 06/17/18 07:25 Resp 18 06/17/18 07:25 BP 143/67 06/17/18 07:25 Pulse Ox 99 06/17/18 07:25 Intake & Output 06/16/18 06/17/18 06/17/18 18:59 06:59 18:59 Intake Total 286 240 Output Total 600 Balance 286 -600 240 Intake: IV 50 Oral 236 240 Output: Urine 600 Other: Voiding Method Toilet Toilet Urinal # Voids 3 2 - Exam Physical examination: PHYSICAL EXAMINATION: Patient is resting comfortably in bed. VITAL SIGNS: Blood pressure is [139/70]. Heart rate is [61]. Respiration is [16] . Temperature is [98.0]. HEENT: Head is atraumatic, neck is supple, there were no carotid bruits. CHEST: Lungs are clear to auscultation and percussion. CARDIAC: S1, S2 normal rate and rhythm. There is no murmur. ABDOMEN: Soft and nontender. Bowel sounds are present. EXTREMITIES: There is no pedal edema. Peripheral pulses are present. Neurological examination: Patient has a nonfocal neurological examination today. He has had no further syncopal episodes. - Labs CBC & Chem 7: 06/17/18 06:53 06/17/18 06:53 Labs: Abnormal Lab Results - Last 24 Hours (Table) 06/17/18 06/17/18 Range/Units 06:53 06:53 Lymphocytes # 0.5 L (1.0-4.8) k/uL Glucose 131 H (74-99) mg/dL Assessment and Plan (1) Vasovagal syncope Status: Acute Code(s): R55 - SYNCOPE AND COLLAPSE SNOMED Code(s): 094440194 (2) Effusion, left knee Status: Acute Code(s): M25.462 - EFFUSION, LEFT KNEE SNOMED Code(s): 122697490 (3) Chronic low back pain Status: Acute Code(s): M54.5 - LOW BACK PAIN; G89.29 - OTHER CHRONIC PAIN SNOMED Code(s): 275036007 (4) Restless leg syndrome Status: Acute Code(s): G25.81 - RESTLESS LEGS SYNDROME SNOMED Code(s): 78040087 Plan: This patient is a pleasant 68-year-old male who is being evaluated for recent syncopal episode and collapse. Patient was admitted to hospital and neurology was consulted for further evaluation to rule out seizure disorder in this patient. Patient underwent routine EEG today which was reviewed and is normal for his age. He was also seen by cardiology today and underwent a tilt table test which also came back normal. Patient may require loop monitor to be placed to rule out other forms of neurocardiogenic syncope. He is to follow-up with cardiology. His neurological examination today is nonfocal. Patient was updated on the results of his EEG today and should follow-up in the outpatient neurology clinic in 3-4 weeks. Patient to have MRI of the left knee done as outpatient. His neurological examination today remains nonfocal. He is being considered for discharge home. His gait was no history of overall prognosis at this time remains fair.
--- NOTE | 2018-06-20 09:53 | EEG ---
ELECTROENCEPHALOGRAM REPORT DATE OF EE06/17/2018 ELECTROENCEPHALOGRAPHIC EXAMINATION REPORT: INDICATION FOR EXAMINATION: This patient is a 68-year-old male being evaluated for syncope versus seizure. AGE: [age]. EEG FINDINGS: A routine 21 channel awake digital EEG recording was accomplished utilizing the 10-20 international system with bipolar and referential montages. The background activity in the most alert resting state consists of a low to medium amplitude, fairly well developed and well sustained 8 Hz activity over the posterior head regions. This posterior rhythm attenuates to eye opening. There is a small amount of low amplitude 18-20 Hz beta activity seen maximally over the anterior head regions. Muscle and movement artifact was observed on a few occasions during the tracing. Hyperventilation was not performed. Photic stimulation at flash frequencies of 2-30 Hz produced a good symmetrical occipital driving response. No epileptiform discharges were seen. IMPRESSION: This EEG is within normal limits for the patient's age. The EEG failed to reveal any focal, lateralized, or epileptiform abnormalities. Clinical correlation is recommended. MMJABARI / IJN: [id number] /
== END 2018-06-17 15:38 | disposition home health service (06) ==
LOC: EC 02:08 → 3OBS 04:39
PROVIDERS: ADMIT Hospitalist; ATTEND Hospitalist
DX: R55 Syncope and collapse (principal); M25.462 Effusion, left knee; K21.9 Gastro-esophageal reflux disease without esophagitis; G89.29 Other chronic pain; M54.5 Low back pain; G25.81 Restless legs syndrome; R25.3 Fasciculation; Z85.46 Personal history of malignant neoplasm of prostate; D69.6 Thrombocytopenia, unspecified; M13.0 Polyarthritis, unspecified; Z87.891 Personal history of nicotine dependence; Z79.899 Other long term (current) drug therapy; Z79.891 Long term (current) use of opiate analgesic; Z91.030 Bee allergy status; W18.30XA Fall on same level, unspecified, initial encounter; Y92.511 Restaurant or cafe as the place of occurrence of the external cause; Y93.89 Activity, other specified; W07.XXXA Fall from chair, initial encounter; Z98.1 Arthrodesis status
CPT/HCPCS: 20610; 96361 ×11; 96374 ×2; 99285 ×2; 36415; 95816; 93306; 97161; 97165; 93660; 80053; 80048 ×2; 82550; 82553; 83735; 84484; 85025 ×3; 85610; 85730; 73564; 71046; G0378 ×3

== ENCOUNTER → 2018-11-10 | Outpatient (CLI) | payer MEDICARE ==
[2018-11-10 18:44] LABS: LDL Cholesterol,Calculated 84.8 mg/dL (0.0-131.0); VLDL Calculation 17.2 mg/dL (5.00-40.00)
== END ==
LOC: LABWHC1 12:08
PROVIDERS: ATTEND Internal Medicine Clinical Cardiac Electrophysiology
DX: I49.3 Ventricular premature depolarization (principal)
CPT/HCPCS: 36415; 80061; 84443

== ENCOUNTER → 2020-07-08 | Outpatient (CLI) | payer MEDICARE | END | disposition home or self-care (01) | LOC: LABWHC1 11:38 | PROVIDERS: ATTEND Otolaryngology | DX: Z11.59 Encounter for screening for other viral diseases (principal) | CPT/HCPCS: U0003; C9803 ==

== ENCOUNTER 2020-09-08 13:19 | Emergency (ER) | payer MEDICARE ==
[2020-09-08 13:35] VITALS: PULSE 68; RESP 14
--- NOTE | 2020-09-08 13:57 | ED ---
Weakness HPI - General Chief complaint: Weakness Stated complaint: Labs Time Seen by Provider: 09/08/20 13:52 Source: patient, family, RN notes reviewed, old records reviewed Mode of arrival: ambulatory Limitations: no limitations - History of Present Illness Initial comments: This is a 62-year-old male DF for evaluation patient has multiple recent surg eries patient is a complex recent surgical history secondary to cancer. Thyroid cancer. Patient has had multiple left foot ever male is recently been placed on left foot supplementation. Patient has no pain just weakness decreased appetite mild nausea no vomiting MD Complaint: generalized weakness -: hour(s) Location: generalized Severity: moderate Severity scale (1-10): 7 Quality: tingling Consistency: constant Improves with: none Worsens with: none Context: history of similar - Related Data Home Medications Medication Instructions Recorded Confirmed Acyclovir [Zovirax] 800 mg PO HS 09/27/17 06/15/18 Gabapentin 600 mg PO TID 09/27/17 06/15/18 Pramipexole [Mirapex] 1 mg PO BID 09/27/17 06/15/18 HYDROcodone/APAP 7.5-325MG [Levels 1 tab PO Q6HR PRN 06/15/18 06/16/18 7.5-325] Omeprazole 20 mg PO BID 06/15/18 06/15/18 Allergies Allergy/AdvReac Type Severity Reaction Status Date / Time bee venom protein (honey bee) Allergy Swelling Verified 06/15/18 07:41 Review of Systems ROS Statement: Those systems with pertinent positive or pertinent negative responses have been documented in the HPI. ROS Other: All systems not noted in ROS Statement are negative. Past Medical History Past Medical History: Cancer, GERD/Reflux, Osteoarthritis (OA), Thyroid Disorder Additional Past Medical History / Comment(s): Chronic low back pain, migraines when younger, arthritis multiple joints, recent L knee injury, RLS, prostate cancer with surgery, past R lower leg and rib fractures, past irregular bowels (diarrhea/constipation) but no longer a problem. History of Any Multi-Drug Resistant Organisms: None Reported Past Surgical History: Back Surgery, Hernia Repair, Orthopedic Surgery, Prostate Surgery Additional Past Surgical History / Comment(s): Recent R wrist surgery, left knee open surgery for meniscus years ago, R inguinal hernia repair, vasectomy with reversal, bilateral hands and thumb surgery d/t injuries, back surgeries (6) with fusions, colonoscopy. Past Anesthesia/Blood Transfusion Reactions: Postoperative Nausea & Vomiting (PONV) Past Psychological History: No Psychological Hx Reported Smoking Status: Former smoker Past Alcohol Use History: Heavy Past Drug Use History: Marijuana - Past Family History Father Family Medical History: No Reported History Additional Family Medical History / Comment(s): Father is healthy and is almost 90yrs old. Mother Family Medical History: No Reported History Additional Family Medical History / Comment(s): Mother is healthy and is 89yrs old. General Exam Limitations: no limitations General appearance: alert, in no apparent distress Head exam: Present: atraumatic, normocephalic, normal inspection Eye exam: Present: normal appearance, PERRL, EOMI. Absent: scleral icterus, conjunctival injection, periorbital swelling ENT exam: Present: normal exam, mucous membranes moist Neck exam: Present: normal inspection. Absent: tenderness, meningismus, lymphadenopathy Respiratory exam: Present: normal lung sounds bilaterally. Absent: respiratory distress, wheezes, rales, rhonchi, stridor Cardiovascular Exam: Present: regular rate, normal rhythm, normal heart sounds. Absent: systolic murmur, diastolic murmur, rubs, gallop, clicks GI/Abdominal exam: Present: soft, normal bowel sounds. Absent: distended, tenderness, guarding, rebound, rigid Extremities exam: Present: normal inspection, full ROM, normal capillary refill. Absent: tenderness, pedal edema, joint swelling, calf tenderness Back exam: Present: normal inspection Neurological exam: Present: alert, oriented X3, CN II-XII intact Psychiatric exam: Present: normal affect, normal mood Skin exam: Present: warm, dry, intact, normal color. Absent: rash Course Vital Signs 09/08/20 13:27 Temperature 98.3 F Pulse Rate 68 Respiratory 14 Rate Blood Pressure 121/57 O2 Sat by Pulse 98 Oximetry - Reevaluation(s) Reevaluation #1: 09/08/20 15:55 Medical records reviewed Reevaluation #2: 09/08/20 15:55 Patient spoken with informed of results, questions answered Reevaluation #3: 09/08/20 15:55 Spoke patient Y feel good to take patient home EKG Findings - EKG Comments: EKG Findings:: EKG is sinus rhythm 62 MO 178 QRS 86 QTc 454 Medical Decision Making - Medical Decision Making 70 male DF for evaluation of possible left foot abnormalities and weakness secondary recent thyroid surgery, lab values all of normal fine here in the ER and patient can be discharged home - Lab Data Result diagrams: 09/08/20 14:21 09/08/20 14:21 Lab Results 09/08/20 09/08/20 09/08/20 Range/Units 14:21 14:21 14:21 WBC 6.6 (3.8-10.6) k/uL RBC 4.02 L (4.30-5.90) m/uL Hgb 11.0 L (13.0-17.5) gm/dL Hct 33.5 L (39.0-53.0) % MCV 83.2 (80.0-100.0) fL MCH 27.2 (25.0-35.0) pg MCHC 32.7 (31.0-37.0) g/dL RDW 13.8 (11.5-15.5) % Plt Count 138 L (150-450) k/uL Neutrophils % 83 % Lymphocytes % 8 % Monocytes % 7 % Eosinophils % 1 % Basophils % 0 % Neutrophils # 5.5 (1.3-7.7) k/uL Lymphocytes # 0.5 L (1.0-4.8) k/uL Monocytes # 0.5 (0-1.0) k/uL Eosinophils # 0.1 (0-0.7) k/uL Basophils # 0.0 (0-0.2) k/uL Hypochromasia Slight Poikilocytosis Slight Sodium 135 L (137-145) mmol/L Potassium 4.4 (3.5-5.1) mmol/L Chloride 100 (98-107) mmol/L Carbon Dioxide 25 (22-30) mmol/L Anion Gap 10 mmol/L BUN 17 (9-20) mg/dL Creatinine 0.67 (0.66-1.25) mg/dL Est GFR (CKD-EPI)AfAm >90 (>60 ml/min/1.73 sqM) Est GFR (CKD-EPI)NonAf >90 (>60 ml/min/1.73 sqM) Glucose 134 H (74-99) mg/dL Plasma Lactic Acid [place] 1.5 (0.7-2.0) mmol/L Calcium 8.5 (8.4-10.2) mg/dL Phosphorus 5.5 H (2.5-4.5) mg/dL Magnesium 2.0 (1.6-2.3) mg/dL Total Bilirubin 0.7 (0.2-1.3) mg/dL AST 17 (17-59) U/L ALT 11 (4-49) U/L Alkaline Phosphatase 75 (38-126) U/L Creatine Kinase 27 L (55-170) U/L Troponin I (0.000-0.034) ng/mL Total Protein 6.6 (6.3-8.2) g/dL Albumin 3.9 (3.5-5.0) g/dL TSH 2.610 (0.465-4.680) mIU/L Free T4 1.09 (0.78-2.19) ng/dL Free T3 pg/mL 2.6 L (2.8-5.3) pg/ml Urine Color Urine Appearance (Clear) Urine pH (5.0-8.0) Ur Specific [place] (1.001-1.035) Urine Protein (Negative) Urine Glucose (UA) (Negative) Urine Ketones (Negative) Urine Blood (Negative) Urine Nitrite (Negative) Urine Bilirubin (Negative) Urine Urobilinogen (<2.0) mg/dL Ur Leukocyte Esterase (Negative) Urine RBC (0-5) /hpf Urine WBC (0-5) /hpf Ur Squamous Epith Cells (0-4) /hpf Amorphous Sediment (None) /hpf Hyaline Casts (0-2) /lpf Urine Mucus (None) /hpf 09/08/20 09/08/20 Range/Units 14:21 14:25 WBC (3.8-10.6) k/uL RBC (4.30-5.90) m/uL Hgb (13.0-17.5) gm/dL Hct (39.0-53.0) % MCV (80.0-100.0) fL MCH (25.0-35.0) pg MCHC (31.0-37.0) g/dL RDW (11.5-15.5) % Plt Count (150-450) k/uL Neutrophils % % Lymphocytes % % Monocytes % % Eosinophils % % Basophils % % Neutrophils # (1.3-7.7) k/uL Lymphocytes # (1.0-4.8) k/uL Monocytes # (0-1.0) k/uL Eosinophils # (0-0.7) k/uL Basophils # (0-0.2) k/uL Hypochromasia Poikilocytosis Sodium (137-145) mmol/L Potassium (3.5-5.1) mmol/L Chloride (98-107) mmol/L Carbon Dioxide (22-30) mmol/L Anion Gap mmol/L BUN (9-20) mg/dL Creatinine (0.66-1.25) mg/dL Est GFR (CKD-EPI)AfAm (>60 ml/min/1.73 sqM) Est GFR (CKD-EPI)NonAf (>60 ml/min/1.73 sqM) Glucose (74-99) mg/dL Plasma Lactic Acid [place] (0.7-2.0) mmol/L Calcium (8.4-10.2) mg/dL Phosphorus (2.5-4.5) mg/dL Magnesium (1.6-2.3) mg/dL Total Bilirubin (0.2-1.3) mg/dL AST (17-59) U/L ALT (4-49) U/L Alkaline Phosphatase (38-126) U/L Creatine Kinase (55-170) U/L Troponin I <0.012 (0.000-0.034) ng/mL Total Protein (6.3-8.2) g/dL Albumin (3.5-5.0) g/dL TSH (0.465-4.680) mIU/L Free T4 (0.78-2.19) ng/dL Free T3 pg/mL (2.8-5.3) pg/ml Urine Color Yellow Urine Appearance Cloudy (Clear) Urine pH 6.0 (5.0-8.0) Ur Specific [place] 1.027 (1.001-1.035) Urine Protein 1+ H (Negative) Urine Glucose (UA) Negative (Negative) Urine Ketones Negative (Negative) Urine Blood Negative (Negative) Urine Nitrite Negative (Negative) Urine Bilirubin Negative (Negative) Urine Urobilinogen <2.0 (<2.0) mg/dL Ur Leukocyte Esterase Negative (Negative) Urine RBC 2 (0-5) /hpf Urine WBC 2 (0-5) /hpf Ur Squamous Epith Cells <1 (0-4) /hpf Amorphous Sediment Rare H (None) /hpf Hyaline Casts 4 H (0-2) /lpf Urine Mucus Many H (None) /hpf Disposition Clinical Impression: Weakness Disposition: HOME SELF-CARE Condition: Good Instructions (If sedation given, give patient instructions): Weakness (ED) Is patient prescribed a controlled substance at d/c from ED?: No Referrals: Dennis Dunbar DO [Primary Care Provider] - 1-2 days
[2020-09-08] MEDS ORDERED: SODIUM CHLORIDE 0.9% 1,000 ML IV STA (13:58)
[2020-09-08 14:32] LABS: Basophils % (A) 0 %; Eosinophils # (A) 0.1 k/uL (0-0.7); Eosinophils % (A) 1 %; HCT 33.5 % (39.0-53.0); Hypochromasia Slight; Lymphocytes # (A) 0.5 k/uL (1.0-4.8); Lymphocytes % (A) 8 %; MCH 27.2 pg (25.0-35.0); MCHC 32.7 g/dL (31.0-37.0); MCV 83.2 fL (80.0-100.0); Mean Platelet Volume 7.8; Monocytes # (A) 0.5 k/uL (0-1.0); Monocytes % (A) 7 %; Neutrophils # (A) 5.5 k/uL (1.3-7.7); Neutrophils % (A) 83 %; Platelet Count 138 k/uL (150-450); Poikilocytosis Slight; RBC 4.02 m/uL (4.30-5.90); RDW 13.8 % (11.5-15.5); WBC 6.6 k/uL (3.8-10.6)
[2020-09-08 14:36] LABS: Amorphous Sediment,Urine Rare /hpf; Appearance,Urine Cloudy (Clear); Bilirubin,Urine Negative (Negative); Blood,Urine Negative (Negative); Color,Urine Yellow; Glucose,Urine (UA) Negative (Negative); Hyaline Casts,Urine 4 /lpf (0-2); Ketones,Urine Negative (Negative); Leukocyte Esterase,Urine Negative (Negative); Mucus,Urine Many /hpf; Nitrite,Urine Negative (Negative); Protein,Urine 1+ (Negative); RBC,Urine 2 /hpf (0-5); Specific Gravity,Urine 1.027 (1.001-1.035); Squamous Epithelial Cell,Urine <1 /hpf (0-4); Urobilinogen,Urine <2.0 mg/dL (<2.0); WBC,Urine 2 /hpf (0-5)
[2020-09-08 14:42] LABS: ALT 11 U/L (4-49); AST 17 U/L (17-59); African American GFR (CKD) >90 (>60 ml/min/1.73 sqM); Albumin 3.9 g/dL (3.5-5.0); Alkaline Phosphatase 75 U/L (38-126); Anion Gap 10 mmol/L; Blood Urea Nitrogen 17 mg/dL (9-20); Calcium 8.5 mg/dL (8.4-10.2); Carbon Dioxide 25 mmol/L (22-30); Chloride 100 mmol/L (98-107); Creatine Kinase 27 U/L (55-170); Glucose 134 mg/dL (74-99); Non-African American GFR(CKD) >90 (>60 ml/min/1.73 sqM); Phosphorus 5.5 mg/dL (2.5-4.5); Potassium 4.4 mmol/L (3.5-5.1); Sodium 135 mmol/L (137-145); Total Bilirubin 0.7 mg/dL (0.2-1.3); Total Protein 6.6 g/dL (6.3-8.2)
[2020-09-08 14:58] LABS: T4, Free (Free Thyroxine) 1.09 ng/dL (0.78-2.19)
[2020-09-08 16:41] VITALS: BP 117/70; TEMP 97.8
== END 2020-09-08 16:48 | disposition home or self-care (01) ==
LOC: EC 13:19
DX: R53.1 Weakness (principal); K21.9 Gastro-esophageal reflux disease without esophagitis; G25.81 Restless legs syndrome; G89.29 Other chronic pain; M54.5 Low back pain; Z79.899 Other long term (current) drug therapy; Z91.030 Bee allergy status; Z85.46 Personal history of malignant neoplasm of prostate; Z85.850 Personal history of malignant neoplasm of thyroid; Z87.891 Personal history of nicotine dependence
CPT/HCPCS: 36415; 80053; 81001; 82550; 83605; 83735; 84100; 84439; 84443; 84481; 84484; 85025; 93005; 96360; 96361; 99285

== ENCOUNTER → 2020-10-28 | Outpatient (CLI) | payer MEDICARE | END | disposition home or self-care (01) | LOC: LABWHC1 10:16 | PROVIDERS: ATTEND Internal Medicine | DX: C73 Malignant neoplasm of thyroid gland (principal) | CPT/HCPCS: 36415; 84432; 84443; 86800 ==

== ENCOUNTER → 2022-04-24 | Outpatient (CLI) | payer MEDICARE ==
[2022-04-24 18:17] LABS: African American GFR (CKD) >90 (>60 ml/min/1.73 sqM); Blood Urea Nitrogen 16 mg/dL (9-20); Non-African American GFR(CKD) 89 (>60 ml/min/1.73 sqM)
--- NOTE | 2022-04-26 12:15 | CT ---
EXAMINATION TYPE: CT neck chest w con DATE OF EXAM: 04/24/2022 COMPARISON: None HISTORY: Malignant neoplasm of cheek mucosa. hx of of oral, thyroid and prostrate ca CT DLP: 828.90 mGycm CONTRAST: Patient injected with 100 mL of Isovue 300. TECHNIQUE: Axial images at 3 mm thick sections. Reconstructed images in the coronal plane and sagitt al plane are reviewed. FINDINGS: Couple small blebs are present within the upper medial right lung. Tiny areas of pneumonitis are scat tered within the right mid lung. No discrete masses are evident. No large consolidation is evident. T hyroid appears to be resected. Surgical clips are at the thyroid bed. No enlarged mediastinal or melo r adenopathy is evident. The ascending thoracic aorta at the main pulmonary artery is 3.7 cm. Main pu lmonary artery at the bifurcation is 2.7 cm. Vascular calcifications within the descending thoracic a manny. Limited CT sections were obtained through the upper abdomen. There is a large cyst on the anterior up per pole right kidney measuring 4.[address] neck: The torus tubarius and fossa of Rosenmuller are normal. [employer] spaces are normal. Para nasal sinuses and mastoid air cells are clear. Parotid glands appear normal and symmetrical. Submandibular glands, are normal. Parapharyngeal spac es are normal. No suspicious adenopathy is evident. Small submental lymph nodes are present. The hypopharynx appears within normal limits. The right submandibular gland appears resected. Left moore bmandibular gland is unremarkable. Vocal cord level appear symmetrical. Osseous structures are normal. IMPRESSIONS: 1. No suspicious change suggest recurrent or metastatic neoplasm.
== END | disposition home or self-care (01) ==
LOC: RADCTMAIN 17:35
PROVIDERS: ATTEND Otolaryngology
DX: C06.0 Malignant neoplasm of cheek mucosa (principal)
CPT/HCPCS: 82565; 84520; 70491; 71260; 36415; Q9967

== ENCOUNTER → 2022-04-30 | Outpatient (CLI) | payer MEDICARE ==
[2022-04-30 22:55] LABS: ALT 23 U/L (10-49); AST 23 U/L (14-35); African American GFR (CKD) 100.6 (60.0-200.0); Albumin 4.5 g/dL (3.8-4.9); Albumin/Globulin Ratio 1.93 (1.60-3.17); Alkaline Phosphatase 74 U/L (41-126); Blood Urea Nitrogen 16.3 mg/dL (9.0-27.0); Calcium 9.1 mg/dL (8.7-10.3); Chloride 104 mmol/L (96-109); Chol/HDL Ratio 3.64 Ratio; Globulin 2.3 g/dL (1.6-3.3); Glucose 120 mg/dL (70-110); LDL Cholesterol,Calculated 116.4 mg/dL (0.0-131.0); Non-African American GFR(CKD) 86.8 (60.0-200.0); Potassium 4.4 mmol/L (3.5-5.5); Sodium 138 mmol/L (135-145); Total Protein 6.9 g/dL (6.2-8.2)
[2022-05-01 00:26] LABS: Basophils # (A) 0.02 X 10*3/uL (0.00-0.10); Basophils % (A) 0.4 %; Eosinophils # (A) 0.07 X 10*3/uL (0.04-0.35); Eosinophils % (A) 1.3 %; HCT 41.6 % (39.6-50.0); HGB 13.5 g/dL (13.0-17.0); Immature Grans, Automated 0.4 %; Lymphocytes # (A) 0.84 X 10*3/uL (0.90-5.00); Lymphocytes % (A) 15.6 %; MCH 28.5 pg (27.0-32.0); MCHC 32.5 g/dL (32.0-37.0); MCV 87.9 fL (80.0-97.0); Mean Platelet Volume 9.9 fL (9.5-12.2); Monocytes # (A) 0.41 X 10*3/uL (0.20-1.00); Monocytes % (A) 7.6 %; NRBC Per 100 WBC 0 /100 WBCS (0.0-0.0); Neutrophils # (A) 4.04 X 10*3/uL (1.80-7.70); Neutrophils % (A) 74.7 %; Platelet Count 119 X 10*3/uL (140-440); RBC 4.73 X 10*6/uL (4.40-5.60); RDW 14.7 % (11.5-14.5)
[2022-05-01 00:27] LABS: RBC Morphology NORMAL
== END | disposition home or self-care (01) ==
LOC: LABWHC1 14:58
PROVIDERS: ATTEND Family Medicine
DX: D64.9 Anemia, unspecified (principal); E78.2 Mixed hyperlipidemia
CPT/HCPCS: 36415; 80053; 80061; 82306; 84153; 84439; 84443; 85025

== ENCOUNTER → 2022-09-17 | Outpatient (CLI) | payer MEDICARE ==
--- NOTE | 2022-09-17 11:48 | US ---
EXAMINATION TYPE: US thyroid st tissue head/neck DATE OF EXAM: 09/17/2022 COMPARISON: CT neck April 24, 2022 CLINICAL HISTORY: C06.9 MOUTH CANCER, C73 THYROID CANCER. History of thyroidectomy, palpable area lef t neck RIGHT: surgically absent LEFT: surgically absent ISTHMUS: surgically absent Bilateral neck scanned, no evidence of lymphadenopathy. No suspicious recurrent tissue at level of thyroid bed. Palpable abnormality left neck submandibular region there is 2.1 cm oval vascular hypoechoic mass likely corresponding to residual submandibular g land as this is not documented by technologist separate from this lesion and is present on comparison CT IMPRESSION: As above. Probable normal left submandibular gland mimicking mass at this level. Correlat e clinically.
== END | disposition home or self-care (01) ==
LOC: RADUSWWP 10:59
PROVIDERS: ATTEND Otolaryngology
DX: C73 Malignant neoplasm of thyroid gland (principal); C06.9 Malignant neoplasm of mouth, unspecified
CPT/HCPCS: 76536

== ENCOUNTER → 2023-05-19 | Outpatient (CLI) | payer MEDICARE ==
[2023-05-19 14:37] LABS: African American GFR (CKD) >90 (>60 ml/min/1.73 sqM); Anion Gap 5 mmol/L; Blood Urea Nitrogen 19 mg/dL (9-20); Calcium 8.6 mg/dL (8.4-10.2); Carbon Dioxide 30 mmol/L (22-30); Chloride 105 mmol/L (98-107); Glucose 90 mg/dL (74-99); Non-African American GFR(CKD) >90 (>60 ml/min/1.73 sqM); Potassium 4.6 mmol/L (3.5-5.1); Sodium 140 mmol/L (137-145)
[2023-05-19 15:03] LABS: Basophils % (A) 0 %; Eosinophils # (A) 0.1 k/uL (0-0.7); Eosinophils % (A) 1 %; HCT 40.1 % (39.0-53.0); HGB 13.4 gm/dL (13.0-17.5); Lymphocytes # (A) 0.7 k/uL (1.0-4.8); Lymphocytes % (A) 16 %; MCH 29.3 pg (25.0-35.0); MCHC 33.5 g/dL (31.0-37.0); MCV 87.5 fL (80.0-100.0); Mean Platelet Volume 8.2; Monocytes # (A) 0.3 k/uL (0-1.0); Monocytes % (A) 6 %; Neutrophils # (A) 3.3 k/uL (1.3-7.7); Neutrophils % (A) 75 %; RBC 4.58 m/uL (4.30-5.90); RDW 15.2 % (11.5-15.5); WBC 4.4 k/uL (3.8-10.6)
[2023-05-19 15:46] LABS: Appearance,Urine Clear (Clear); Bilirubin,Urine Negative (Negative); Blood,Urine Negative (Negative); Color,Urine Yellow; Glucose,Urine (UA) Negative (Negative); Ketones,Urine Negative (Negative); Leukocyte Esterase,Urine Negative (Negative); Nitrite,Urine Negative (Negative); PH, Urine 5.5 (5.0-8.0); Protein,Urine Trace (Negative); Specific Gravity,Urine 1.027 (1.001-1.035); Urobilinogen,Urine <2.0 mg/dL (<2.0)
[2023-05-19 16:31] LABS: Platelet Count 93 k/uL (150-450); RBC Morphology Normal
== END | disposition home or self-care (01) ==
LOC: LABPAT 13:17
PROVIDERS: ATTEND Urology
DX: Z01.812 Encounter for preprocedural laboratory examination (principal); T83.410A Breakdown (mechanical) of implanted penile prosthesis, initial encounter; R35.0 Frequency of micturition
CPT/HCPCS: 36415; 80048; 81003; 85025; 87086

== ENCOUNTER 2023-05-26 06:21 | Day surgery (SDC) | payer MEDICARE ==
--- NOTE | 2023-05-25 18:03 | P.GSHP ---
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 He has an inflatable penile implant placed after his radical prostatectomy done at [facility] in 2011. The implant recently has malfunctioned and wont inflate. He comes for replacement. the risks and complications have been discussed. - Constitutional Constitutional: Denies chills, Denies fever - EENT Eyes: denies blurred vision, denies pain Ears, nose, mouth and throat: Denies headache, Denies sore throat - Cardiovascular Cardiovascular: Denies chest pain, Denies shortness of breath - Respiratory Respiratory: Denies cough, Denies 7 - Gastrointestinal Gastrointestinal: Denies abdominal pain, Denies diarrhea, Denies nausea, Denies vomiting - Genitourinary (Female) Genitourinary: Denies dysuria, Denies hematuria - Genitourinary (Male) Genitourinary: Denies dysuria, Denies hematuria - Musculoskeletal Musculoskeletal: Denies myalgias - Integumentary Integumentary: Denies pruritus, Denies rash - Neurological Neurological: Denies numbness, Denies weakness - Psychiatric Psychiatric: Denies anxiety, Denies depression - Endocrine Endocrine: Denies fatigue, Denies weight change Past Medical History Past Medical History: Cancer, GERD/Reflux, Osteoarthritis (OA), Thyroid Disorder Additional Past Medical History / Comment(s): Chronic low back pain, migraines when younger, arthritis multiple joints, recent L knee injury, RLS, prostate cancer with surgery, past R lower leg and rib fractures, past irregular bowels (diarrhea/constipation) but no longer a problem. History of Any Multi-Drug Resistant Organisms: None Reported Past Surgical History: Back Surgery, Hernia Repair, Orthopedic Surgery, Prostate Surgery Additional Past Surgical History / Comment(s): Recent R wrist surgery, left knee open surgery for meniscus years ago, R inguinal hernia repair, vasectomy with reversal, bilateral hands and thumb surgery d/t injuries, back surgeries (6) with fusions, colonoscopy. penile implant. grafting of rt arm for transplant to rt inner jaw Past Anesthesia/Blood Transfusion Reactions: Postoperative Nausea & Vomiting (PONV) Smoking Status: Former smoker - Past Family History Father Family Medical History: No Reported History, Hypertension Additional Family Medical History / Comment(s): Father is healthy and is almost 90yrs old. aneurysm Mother Family Medical History: No Reported History, Hypertension Additional Family Medical History / Comment(s): Mother is healthy and is 89yrs old. Medications and Allergies Home Medications Medication Instructions Recorded Confirmed Type Acyclovir [Zovirax] 800 mg PO HS 09/27/17 05/21/23 History Gabapentin 600 mg PO TID 09/27/17 05/21/23 History Pramipexole [Mirapex] 1 mg PO BID 09/27/17 05/21/23 History Omeprazole 20 mg PO DAILY 06/15/18 05/21/23 History Calcium Carbonate [Calcium] 600 mg PO TID 05/21/23 05/21/23 History Levothyroxine Sodium 125 mcg PO DAILY 05/21/23 05/21/23 History Meloxicam [Mobic] 15 mg PO DAILY 05/21/23 05/21/23 History Allergies Allergy/AdvReac Type Severity Reaction Status Date / Time bee venom protein (honey bee) Allergy Swelling Verified 05/21/23 15:36 Surgical - Exam - General well developed, well nourished, no distress - Eyes normal ocular movement, no icteric - ENT no hearing loss, no congestion - Neck no masses, trachea midline - Respiratory normal respiratory effort, clear to auscultation - Abdomen Abdomen: soft, non tender, no guarding, no rigid, no rebound - Genitourinary inflatable penile implant that wont inflate. - Integumentary no rash, no abnormal pigmentation - Neurologic no disoriented, no combative - Psychiatric oriented to time, oriented to person, oriented to place, speech is normal, memory intact Assessment and Plan Assessment: Impression: Malfunction penile implant. 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
[~2023-05-26 06:21] MED LIST: AMPICILLIN 1,000 MG in SODIUM CHLORIDE 0.9% 50 ML IVPB PRN; GENTAMICIN 110 MG in SODIUM CHLORIDE 0.9% 100 ML IVPB PRN
[2023-05-26] MEDS ORDERED: DEXAMETHASONE SOD PHOSPHATE 4 MG/ML 1 ML VIAL IV ONE (06:39)
[2023-05-26] MEDS ORDERED: ONDANSETRON 4 MG/2 ML VIAL IVP ONE (06:39)
[2023-05-26] MEDS ORDERED: LACTATED RINGERS 1,000 ML IV SCH (06:39)
[2023-05-26] MEDS ORDERED: LIDOCAINE 1% (10MG/ML) FOR IV START INTRADERMA PRN (06:39)
[2023-05-26] MEDS ORDERED: HYDROmorphone 0.5 MG/0.5 ML SYRINGE IVP PRN (07:00)
[2023-05-26] MEDS ORDERED: MIDAZOLAM 2 MG/2 ML VIAL ONE (07:25)
[2023-05-26] MEDS ORDERED: GLYCOPYRROLATE 0.2 MG/ML 2 ML VIAL ONE (07:25)
[2023-05-26] MEDS ORDERED: WATER FOR INJECTION, STERILE 10 ML VIAL IV ONE (07:25)
[2023-05-26] MEDS ORDERED: LIDOCAINE 2% INJ 20 MG/ML (2 ML VIAL) ONE (07:25)
[2023-05-26] MEDS ORDERED: ePHEDrine 50 MG/ML 1 ML VIAL ONE (07:25)
[2023-05-26] MEDS ORDERED: SUCCINYLCHOLINE CHLORIDE 200 MG/10 ML VIAL IV ONE (07:25)
[2023-05-26] MEDS ORDERED: HYDROmorphone (PF) 1 MG/ML ONE (07:25)
[2023-05-26] MEDS ORDERED: fentaNYL (PF) 50 MCG/ML 2 ML AMP ONE (07:25)
[2023-05-26] MEDS ORDERED: PROPOFOL 10 MG/ML 20 ML VIAL IV ONE (07:25)
[2023-05-26] MEDS ORDERED: GENTAMICIN 80 MG in SODIUM CHLORIDE 0.9% 200 ML IRRIGATION ONE (07:50)
[2023-05-26] MEDS ORDERED: LACTATED RINGERS 1,000 ML IV ONE (08:17)
--- NOTE | 2023-05-26 09:06 | P.OP ---
Date of Procedure: 05/26/23 Preoperative Diagnosis: Malfunctioning penile implant Postoperative Diagnosis: Same Procedure(s) Performed: Removal of malfunctioning penile implant with replacement of inflatable penile implant, AMS 700 CX, 18 cm with 1 cm rear-tip air drill operator, 65 mL spherical balloon Anesthesia: LINAA Surgeon: Caleb Herrera Estimated Blood Loss (ml): 15 Pathology: none sent Condition: stable Disposition: PACU Indications for Procedure: Patient is 73. 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 He had an AMS 700 implant in 2015 that now is malfunctioned. He comes replacement Description of Procedure: Patient brought to the operating suite. He is given a general anesthetic. He is prepped and draped sterilely. A midline infrapubic incision is made. I dissect down to the implant tubing. With electrocautery follow the tubing in the directions from which they emanate. When tubing goes towards the reservoir 1 tubing goes towards the pump into tubings go towards the implants. I removed the reservoir after placing stay stitches in the cavity. I remove the pump again placing 3-0 PDS stay stitches in the cavity. I then removed each cylinder from the corpora again placing 3-0 PDS stitches in each corpora. I then irrigate thoroughly. I then place a new 18 cm AMS 700 CX implant with a 1 cm rear-tip air drill operator into each corpora using the Tigist introducer passing the needle through the head of the penis without difficulty. I see the rear-tip of the implant into the proximal cavity the corpora cavernosa. I inflate each implant and inflates without buckling or ST deformity. I closed the corpora cavernosa with running 3-0 PDS bilaterally. I placed the pump in the right hemiscrotum. I placed the reservoir in the preperitoneal space. I then connected the reservoir to the pump with straight connects. I then pump the pum p and the implant inflates and deflates without difficulty. The wound is irrigated. The subcutaneous tissues closed with 3-0 chromic. The skin with a 4-0 Vicryl. The patient is awake and returned recovery in good condition. Blood loss is about 10 mL. He tolerated procedure well and will be discharged home upon recovery.
[2023-05-26 09:14] VITALS: TEMP 97.6
[2023-05-26] MEDS ORDERED: KETOROLAC 15 MG/ML 1 ML VIAL IVP ONE (09:31)
[2023-05-26] MEDS ORDERED: HYDROcodone/APAP 5-325MG 1 EACH TAB ONE (10:12)
[2023-05-26] MEDS ORDERED: HYDROcodone/APAP 5-325MG 1 EACH TAB PO ONE (10:12)
[2023-05-26 10:29] VITALS: RESP 16
[2023-05-26 11:32] VITALS: BP 141/68
[2023-05-26 11:33] VITALS: PULSE 80
== END 2023-05-26 11:29 | disposition home or self-care (01) ==
LOC: OR 06:21
PROVIDERS: ATTEND Urology
DX: T83.410A Breakdown (mechanical) of implanted penile prosthesis, initial encounter (principal); K21.9 Gastro-esophageal reflux disease without esophagitis; M19.90 Unspecified osteoarthritis, unspecified site; E07.9 Disorder of thyroid, unspecified; G89.29 Other chronic pain; G40.909 Epilepsy, unspecified, not intractable, without status epilepticus; G25.81 Restless legs syndrome; K91.0 Vomiting following gastrointestinal surgery; Z85.46 Personal history of malignant neoplasm of prostate; Z87.891 Personal history of nicotine dependence; Z79.890 Hormone replacement therapy; Z79.899 Other long term (current) drug therapy; Z79.1 Long term (current) use of non-steroidal anti-inflammatories (NSAID); Z91.030 Bee allergy status
CPT/HCPCS: 54410; C1813; J2250; J0330; J1580 ×2; J1100; J2405; J3010; J0290; J1170; J1885; J2704; J2001

== ENCOUNTER 2023-05-30 10:27 | Emergency (ER) | payer MEDICARE ==
[2023-05-30 10:33] VITALS: RESP 18
[2023-05-30] MEDS ORDERED: ONDANSETRON 4 MG/2 ML VIAL IVP STA (11:17)
[2023-05-30] MEDS ORDERED: KETOROLAC 15 MG/ML 1 ML VIAL IVP STA (11:17)
[2023-05-30] MEDS ORDERED: SODIUM CHLORIDE 0.9% 1,000 ML IV STA (11:17)
--- NOTE | 2023-05-30 11:24 | ED ---
Fever HPI - General Chief Complaint: Recheck/Abnormal Lab/Rx Stated Complaint: fever Time Seen by Provider: 05/30/23 10:50 Source: patient, RN notes reviewed Mode of arrival: ambulatory Limitations: no limitations - History of Present Illness Initial Comments: This is a 73-year-old male who presents to the emergency department for a fever. Patient had a penile implant with Dr. Herrera on 05/26. States that 2 days ago, he started to develop fevers and increasing pain in the pelvis. He last took [place] and Toradol last night, which was only mildly beneficial. Also reports nausea. He has not noticed any drainage from the incision. Denies any fevers, chills, sore throat, cough, dyspnea, chest pain, palpitations, vomiting, diarrhea, back pain, or headaches. MD Complaint: fever - Related Data Home Medications Medication Instructions Recorded Confirmed Acyclovir [Zovirax] 800 mg PO HS 09/27/17 05/30/23 Gabapentin 600 mg PO TID 09/27/17 05/30/23 Omeprazole 20 mg PO DAILY 06/15/18 05/30/23 Calcium Carbonate [Calcium] 600 mg PO DAILY 05/21/23 05/30/23 Meloxicam [Mobic] 15 mg PO DIRECTED 05/21/23 05/30/23 Levothyroxine Sodium [Synthroid] 100 mcg PO DAILY 05/30/23 05/30/23 Magnesium Oxide [Magnesium] 500 mg PO HS 05/30/23 05/30/23 Pramipexole Di-HCl [Mirapex] 2.25 mg PO HS 05/30/23 05/30/23 Previous Rx's Medication Instructions Recorded Ketorolac [Toradol] 10 mg PO Q6HR PRN #20 tab 05/26/23 Sulfamethox-Tmp 800-160Mg [Bactrim 1 tab PO Q12HR 10 Days #20 tab 05/30/23 DS 800-160 mg] Allergies Allergy/AdvReac Type Severity Reaction Status Date / Time bee venom protein (honey bee) Allergy Swelling Verified 05/30/23 15:59 Review of Systems ROS Statement: Those systems with pertinent positive or pertinent negative responses have been documented in the HPI. ROS Other: All systems not noted in ROS Statement are negative. Past Medical History Past Medical History: Cancer, GERD/Reflux, Osteoarthritis (OA), Prostate Disorder, Thyroid Disorder Additional Past Medical History / Comment(s): Chronic low back pain, migraines when younger, arthritis multiple joints, recent L knee injury, RLS, prostate cancer with surgery, past R lower leg and rib fractures, past irregular bowels (diarrhea/constipation) but no longer a problem. History of Any Multi-Drug Resistant Organisms: None Reported Past Surgical History: Back Surgery, Hernia Repair, Orthopedic Surgery, Prostate Surgery Additional Past Surgical History / Comment(s): Recent R wrist surgery, left knee open surgery for meniscus years ago, R inguinal hernia repair, vasectomy with reversal, bilateral hands and thumb surgery d/t injuries, back surgeries (6) with fusions, colonoscopy, 2nd penile enlargment Past Anesthesia/Blood Transfusion Reactions: Postoperative Nausea & Vomiting (PONV) Past Psychological History: No Psychological Hx Reported Smoking Status: Former smoker Past Alcohol Use History: None Reported Past Drug Use History: Marijuana - Past Family History Father Family Medical History: No Reported History, Hypertension Additional Family Medical History / Comment(s): Father is healthy and is almost 90yrs old. aneurysm Mother Family Medical History: No Reported History, Hypertension Additional Family Medical History / Comment(s): Mother is healthy and is 89yrs old. General Exam Limitations: no limitations General appearance: alert, in no apparent distress Head exam: Present: atraumatic, normocephalic, normal inspection Respiratory exam: Present: normal lung sounds bilaterally. Absent: respiratory distress, wheezes, rales, rhonchi, stridor Cardiovascular Exam: Present: regular rate, normal rhythm, normal heart sounds. Absent: systolic murmur, diastolic murmur, rubs, gallop, clicks GI/Abdominal exam: Present: soft, other (Suprapubic ecchymosis with vertical incision. Incision is intact without surrounding erythema or drainage) exam: Present: other (Penile and bilateral scrotal ecchymosis.) Neurological exam: Present: alert, oriented X3, CN II-XII intact Psychiatric exam: Present: normal affect, normal mood Course Vital Signs 05/30/23 05/30/23 05/30/23 10:28 11:00 12:40 Temperature 101.0 F H 101.5 F H Pulse Rate 77 78 Respiratory 18 18 18 Rate Blood Pressure 143/67 121/70 117/66 O2 Sat by Pulse 100 96 95 Oximetry 0705/30/23 05/30/23 14:00 15:30 17:32 Temperature 99.4 F 98.8 F Pulse Rate 78 81 Respiratory 18 18 Rate Blood Pressure 118/69 160/79 O2 Sat by Pulse 97 98 Oximetry Medical Decision Making - Medical Decision Making This is a 73-year-old male who presents to the emergency department for a fever. Was pt. sent in by a medical professional or institution? @ -No Did you speak to anyone other than the patient for history? @ -No Did you review nursing and triage notes? @ -Yes, and I agree, it is accurate with regards to the patient's symptoms. Were old charts reviewed? @ -No Differential Diagnosis? @ -Differential Fever: Pneumonia, viral URI, endocarditis, myocarditis, pericarditis, otitis, sinusitis, peritonsillar Abscess, retropharyngeal Abscess, epiglottitis, peritonitis, appendicitis, [place] cystitis, diverticulitis, hepatitis, colitis, UTI, PID, TOA, pyelonephritis, prostatitis, epididymitis, meningitis, encephalitis, pulmonary embolism, CVA, thyroid storm, pancreatitis, adrenal crisis, cavernous sinus thrombosis, this is not meant to be an all-inclusive list. EKG interpreted by me (3pts min.)? @ -Not obtained X-rays interpreted by me (1pt min.)? @ -Not obtained CT interpreted by me (1pt min.)? @ -Computed tomography scan of the abdomen and pelvis obtained. My interpretation identifies no evidence of fluid collection or free air. U/S interpreted by me (1pt. min.)? @ -Not obtained What testing was considered but not performed? (CT, X-rays, U/S, labs)? Why? @ -None What meds were considered but not given? Why? @ -None Did you discuss the management of the patient with other professionals? @ -Yes, Dr. Galicia, who advised starting the patient on Bactrim and having him follow up with Dr. Herrera in the office either tomorrow or Wednesday. Did you reconcile home meds? @ -No Was smoking cessation discussed for >3mins.? @ -No Was critical care preformed (if so, how long)? @ -No Were there social determinants of health that impacted care today? How? (Homelessness, low income, unemployed, alcoholism, drug addiction, transportation, low edu. Level, literacy, decrease access to med. care, half-way, rehab)? @ -No Was there de-escalation of care discussed even if they declined? (Discuss DNR or withdrawal of care, Hospice)? @ -No What co-morbidities impacted this encounter? (DM, HTN, Smoking, COPD, CAD, Cancer, CVA, Hep., AIDS, mental health diagnosis, sleep apnea, morbid obesity)? @ -None Was patient admitted / discharged? @ -Discharged. Lab work obtained and found to be nonactionable. Covid, influenza, and RSV testing were negative. Physical examination consistent with postoperative ecchymosis. The incision was intact and appeared to be well healing without evidence of surrounding infection. Computed tomography scan of the abdomen and pelvis obtained, also revealing no acute process. Urinalysis ne gative for signs of infection. Patient was febrile on arrival at 101.5 degrees F and this was effectively treated with Toradol. Case discussed with Dr. Galicia, urology. He advised starting the patient on Bactrim and having him follow up with Dr. Herrera in the office either tomorrow or Wednesday. This was discussed with the patient who expresses understanding. Prescription for Bactrim provided with dosing instructions reviewed. Advised he continue with the Toradol he has home for both fevers and pain management. He can alternate this with Tylenol as well for additional fever control. Undiagnosed new problem with uncertain prognosis? @ -None Drug Therapy requiring intensive monitoring for toxicity (Heparin, Nitro, Insulin, Cardizem)? @ -None Were any procedures done? @ -None Diagnosis/symptom? @ -Fever, s/p urological surgery Acute, or Chronic, or Acute on Chronic? @ -Acute Uncomplicated (without systemic symptoms) or Complicated (systemic symptoms)? @ -Uncomplicated Side effects of treatment? @ -None Exacerbation, Progression, or Severe Exacerbation] @ -Not applicable Poses a threat to life or bodily function? @ -No Return precautions reviewed in depth, the patient is instructed to return to the emergency department with any new, worsening, or concerning symptoms. Patient verbalized understanding. This case was discussed in detail with the attending ED physician, Dr. Snowden. Presentation, findings, and treatment plan discussed in detail as well. - Lab Data Result diagrams: 05/30/23 11:36 05/30/23 11:36 Lab Results 05/30/23 05/30/23 05/30/23 Range/Units 11:36 11:36 11:36 WBC 5.1 (3.8-10.6) k/uL RBC 4.08 L (4.30-5.90) m/uL Hgb 12.8 L (13.0-17.5) gm/dL Hct 36.1 L (39.0-53.0) % MCV 88.6 (80.0-100.0) fL MCH 31.4 (25.0-35.0) pg MCHC 35.4 (31.0-37.0) g/dL RDW 15.0 (11.5-15.5) % Plt Count 88 L (150-450) k/uL MPV 8.5 Neutrophils % 86 % Lymphocytes % 5 % Monocytes % 7 % Eosinophils % 1 % Basophils % 0 % Neutrophils # 4.4 (1.3-7.7) k/uL Lymphocytes # 0.3 L (1.0-4.8) k/uL Monocytes # 0.4 (0-1.0) k/uL Eosinophils # 0.0 (0-0.7) k/uL Basophils # 0.0 (0-0.2) k/uL Manual Slide Review Performed RBC Morphology Normal Sodium 134 L (137-145) mmol/L Potassium 4.1 (3.5-5.1) mmol/L Chloride 102 (98-107) mmol/L Carbon Dioxide 26 (22-30) mmol/L Anion Gap 6 mmol/L BUN 17 (9-20) mg/dL Creatinine 0.78 (0.66-1.25) mg/dL Est GFR (CKD-EPI)AfAm >90 (>60 ml/min/1.73 sqM) Est GFR (CKD-EPI)NonAf >90 (>60 ml/min/1.73 sqM) Glucose 119 H (74-99) mg/dL Plasma Lactic Acid [place] (0.7-2.0) mmol/L Calcium 8.2 L (8.4-10.2) mg/dL Total Bilirubin 1.1 (0.2-1.3) mg/dL AST 26 (17-59) U/L ALT 21 (4-49) U/L Alkaline Phosphatase 67 (38-126) U/L Total Protein 6.3 (6.3-8.2) g/dL Albumin 3.7 (3.5-5.0) g/dL Urine Color Yellow Urine Appearance Clear (Clear) Urine pH 7.5 (5.0-8.0) Ur Specific [place] 1.016 (1.001-1.035) Urine Protein Negative (Negative) Urine Glucose (UA) Negative (Negative) Urine Ketones Negative (Negative) Urine Blood Negative (Negative) Urine Nitrite Negative (Negative) Urine Bilirubin Negative (Negative) Urine Urobilinogen <2.0 (<2.0) mg/dL Ur Leukocyte Esterase Negative (Negative) Influenza Type A (PCR) (Not Detectd) Influenza Type B (PCR) (Not Detectd) RSV (PCR) (Not Detectd) SARS-CoV-2 (PCR) (Not Detectd) 05/30/23 05/30/23 Range/Units 11:36 16:25 WBC (3.8-10.6) k/uL RBC (4.30-5.90) m/uL Hgb (13.0-17.5) gm/dL Hct (39.0-53.0) % MCV (80.0-100.0) fL MCH (25.0-35.0) pg MCHC (31.0-37.0) g/dL RDW (11.5-15.5) % Plt Count (150-450) k/uL MPV Neutrophils % % Lymphocytes % % Monocytes % % Eosinophils % % Basophils % % Neutrophils # (1.3-7.7) k/uL Lymphocytes # (1.0-4.8) k/uL Monocytes # (0-1.0) k/uL Eosinophils # (0-0.7) k/uL Basophils # (0-0.2) k/uL Manual Slide Review RBC Morphology Sodium (137-145) mmol/L Potassium (3.5-5.1) mmol/L Chloride (98-107) mmol/L Carbon Dioxide (22-30) mmol/L Anion Gap mmol/L BUN (9-20) mg/dL Creatinine (0.66-1.25) mg/dL Est GFR (CKD-EPI)AfAm (>60 ml/min/1.73 sqM) Est GFR (CKD-EPI)NonAf (>60 ml/min/1.73 sqM) Glucose (74-99) mg/dL Plasma Lactic Acid [place] 0.8 (0.7-2.0) mmol/L Calcium (8.4-10.2) mg/dL Total Bilirubin (0.2-1.3) mg/dL AST (17-59) U/L ALT (4-49) U/L Alkaline Phosphatase (38-126) U/L Total Protein (6.3-8.2) g/dL Albumin (3.5-5.0) g/dL Urine Color Urine Appearance (Clear) Urine pH (5.0-8.0) Ur Specific [place] (1.001-1.035) Urine Protein (Negative) Urine Glucose (UA) (Negative) Urine Ketones (Negative) Urine Blood (Negative) Urine Nitrite (Negative) Urine Bilirubin (Negative) Urine Urobilinogen (<2.0) mg/dL Ur Leukocyte Esterase (Negative) Influenza Type A (PCR) Not Detected (Not Detectd) Influenza Type B (PCR) Not Detected (Not Detectd) RSV (PCR) Not Detected (Not Detectd) SARS-CoV-2 (PCR) Not Detected (Not Detectd) - Radiology Data Radiology results: report reviewed, image reviewed Disposition Clinical Impression: Fever, S/P urological surgery Disposition: HOME SELF-CARE Instructions (If sedation given, give patient instructions): Fever in Adults (ED) Additional Instructions: Return to the emergency department with any new, worsening, or concerning symptoms. Take the antibiotic as prescribed for 10 days. Continue to take the Toradol and [place] as prescribed for pain relief. The Toradol will also help with fevers. Take this with Tylenol as well for further management of the fevers. Contact Dr. Herrera's office tomorrow if they are open. Otherwise call them on Wednesday. Prescriptions: Sulfamethox-Tmp 800-160Mg [Bactrim DS 800-160 mg] 1 tab PO Q12HR 10 Days #20 tab Is patient prescribed a controlled substance at d/c from ED?: No Referrals: Dennis Dunbar DO [Primary Care Provider] - 1-2 days
[2023-05-30 12:07] LABS: Basophils % (A) 0 %; Eosinophils % (A) 1 %; HCT 36.1 % (39.0-53.0); HGB 12.8 gm/dL (13.0-17.5); Lymphocytes # (A) 0.3 k/uL (1.0-4.8); Lymphocytes % (A) 5 %; MCH 31.4 pg (25.0-35.0); MCHC 35.4 g/dL (31.0-37.0); MCV 88.6 fL (80.0-100.0); Mean Platelet Volume 8.5; Monocytes # (A) 0.4 k/uL (0-1.0); Monocytes % (A) 7 %; Neutrophils # (A) 4.4 k/uL (1.3-7.7); Neutrophils % (A) 86 %; RBC 4.08 m/uL (4.30-5.90); WBC 5.1 k/uL (3.8-10.6)
[2023-05-30 12:08] LABS: ALT 21 U/L (4-49); AST 26 U/L (17-59); African American GFR (CKD) >90 (>60 ml/min/1.73 sqM); Albumin 3.7 g/dL (3.5-5.0); Alkaline Phosphatase 67 U/L (38-126); Anion Gap 6 mmol/L; Blood Urea Nitrogen 17 mg/dL (9-20); Calcium 8.2 mg/dL (8.4-10.2); Carbon Dioxide 26 mmol/L (22-30); Chloride 102 mmol/L (98-107); Glucose 119 mg/dL (74-99); Non-African American GFR(CKD) >90 (>60 ml/min/1.73 sqM); Potassium 4.1 mmol/L (3.5-5.1); Sodium 134 mmol/L (137-145); Total Bilirubin 1.1 mg/dL (0.2-1.3); Total Protein 6.3 g/dL (6.3-8.2)
[2023-05-30 12:57] LABS: Appearance,Urine Clear (Clear); Bilirubin,Urine Negative (Negative); Blood,Urine Negative (Negative); Color,Urine Yellow; Glucose,Urine (UA) Negative (Negative); Ketones,Urine Negative (Negative); Leukocyte Esterase,Urine Negative (Negative); Nitrite,Urine Negative (Negative); PH, Urine 7.5 (5.0-8.0); Protein,Urine Negative (Negative); Specific Gravity,Urine 1.016 (1.001-1.035); Urobilinogen,Urine <2.0 mg/dL (<2.0)
[2023-05-30 13:39] LABS: Platelet Count 88 k/uL (150-450)
[2023-05-30 13:40] LABS: RBC Morphology Normal
--- NOTE | 2023-05-30 15:55 | CT ---
EXAMINATION TYPE: CT abdomen pelvis w con DATE OF EXAM: 05/30/2023 COMPARISON: None HISTORY: Fever post pinneal implant x4 days ago. CT DLP: 963.7 mGycm Automated exposure control for dose reduction was used. TECHNIQUE: Helical acquisition of images was performed from the lung bases through the pelvis. CONTRAST: Performed without Oral Contrast and with IV Contrast, patient injected with 100ml mL of Isovue 300. FINDINGS: The lung bases are clear. There is been cholecystectomy. There are no focal masses or organomegaly involving the solid visceral organs of the upper abdomen. There are no solid renal masses or hydronephrosis. There is a large simple cortical cyst of the right kidney. The bowel loops are normal in caliber and there is no dilatation or obstruction. There is no free int raperitoneal air or fluid. There is no intra-abdominal abscess. There are postsurgical changes of a penile implant. There is a reservoir within the right inguinal re gion. There is no evidence of abscess. The osseous structures are intact. IMPRESSION: 1. Postsurgical changes of penile implant. 2. Cholecystectomy. 3. No evidence of abscess, bowel obstruction, free intraperitoneal air or fluid.
[2023-05-30] MEDS ORDERED: SULFAMETH-TMP DS STARTER PACK 2 TAB BTL PO STA (17:11)
[2023-05-30] MEDS ORDERED: ONDANSETRON 4 MG ODT STARTER PACK 2 TAB BTL PO STA (17:14)
[2023-05-30 17:34] VITALS: BP 160/79; PULSE 81; TEMP 98.8
== END 2023-05-30 17:34 | disposition home or self-care (01) ==
LOC: EC 10:27
DX: R50.9 Fever, unspecified (principal); Z48.816 Encounter for surgical aftercare following surgery on the genitourinary system; K21.9 Gastro-esophageal reflux disease without esophagitis; E07.9 Disorder of thyroid, unspecified; F12.90 Cannabis use, unspecified, uncomplicated; Z87.891 Personal history of nicotine dependence; Z79.624 Long term (current) use of inhibitors of nucleotide synthesis; Z79.890 Hormone replacement therapy; Z79.899 Other long term (current) drug therapy; Z20.822 Contact with and (suspected) exposure to COVID-19; Z91.030 Bee allergy status
CPT/HCPCS: 36415; 80053; 83605; 85025; 81003; 87040; 87636; 74177; 99284; 96374; 96375; 96361; J2405; J1885; S0119; Q9967

== ENCOUNTER → 2023-06-02 | Outpatient (CLI) | payer MEDICARE ==
--- NOTE | 2023-06-02 15:38 | XR ---
EXAMINATION TYPE: XR chest 2V DATE OF EXAM: 06/02/2023 3:28 PM COMPARISON: Chest radiographs from 06/15/2018 TECHNIQUE: XR chest 2V Frontal and lateral views of the chest. CLINICAL INDICATION:Male, 73 years old with history of R06.02, COUGH; FINDINGS: Lungs/Pleura: Right upper lung patchy airspace opacities. No pneumothorax or pleural effusion. Pulmonary vascularity: Unremarkable. Heart/mediastinum: Cardiomediastinal silhouette is unremarkable. Musculoskeletal: No acute osseous pathology. Other findings: Surgical clips in the neck. IMPRESSION: Right upper lung patchy airspace opacities concerning for pneumonia. Continued follow-up is recommend ed.
== END | disposition home or self-care (01) ==
LOC: LABWHC1 15:15
PROVIDERS: ATTEND Urology
DX: R91.8 Other nonspecific abnormal finding of lung field (principal); R06.02 Shortness of breath; R05.9 Cough, unspecified
CPT/HCPCS: 71046